=== PATIENT | male | born 1995 | race Caucasian/White ===

== ENCOUNTER 2018-05-22 09:22 | Inpatient (IN) ==
[2018-05-22] MEDS ORDERED: SODIUM CHLORIDE 0.9% 1000ML 1,000 ML IV ONE ×2 (09:27→13:12)
--- NOTE | 2018-05-22 09:29 | Emergency Department Note ---
Entered by Dolly Key acting as a scribe for Richi Becerra MD ED Provider Note Name: Jhon Lopez Age: 22 M Arrives Via: EMS Informant: EMS (Patient is a poor informant due to intoxication/psychosis) CC: Alcohol Intoxication HPI: 22 year old male arrives for evaluation of an episode of alcohol intoxication that began last night. Per EMS, the patient was found this morning in the back of a store. EMS states that the patient only responds to the opposite of what is said. The patient states that he drank "everything" last night, and states that he snorted Adderall last night. Per EMS, the patient is intermittently agitated. ROS: Unable to obtain as patient acutely psychotic Past Medical History: No significant past medical history Past Surgical History: No significant past surgical history Family History: No significant past family history Social History: Student Home Medications: Unknown Allergies Unknown Physical: Vitals: BP: 149/98; Pulse: 108; Resp: 18; Temp: 99.0 F; O2 Sat: 98 via room air Exam: GENERAL: Patient is agitated. Rapid gittery movements. ?etoh EYES: No scleral icterus, unremarkable pupils. Rapid gittery eye movements. ENT: Mucous membranes dry, no nasal congestion. NECK: No masses appreciated, no meningismus, trachea is midline. RESPIRATORY: No dyspnea. Clear to auscultation and equal bilaterally. No wheeze, no rhonchi. CARDIOVASCULAR: Tachycardic rate and rhythm. No murmurs, rubs, gallops appreciated. GASTROINTESTINAL: Abdomen soft, non-tender, no peritonitis. Bowel sounds positive. No masses appreciated. BACK: No midline tenderness, no CVA tenderness EXTREMITIES: Normal motion all extremities, no cyanosis, no edema. NEUROLOGIC: No acute motor or sensory deficits, no focal weakness, cranial ner ves grossly intact. Clear pressured speech. Non-cooperative. Moving all extremities purposefully. SKIN: No rash, no jaundice, no diaphoresis. ED Course: Prior Medical Record, Triage/Nursing Notes, Medications, Allergies reviewed by Me Vital Signs: reviewed and remarkable for Tachy, HTN Labs: Reviewed and remarkable for mild elevation Bilirubin. Normal psych labs. Unable to get salicylate. Marijuana in UA. Interventions: Saline Lock, NSS bolus 2 L IV, Ativan 2mg IM, Haldol 10mg IM Imaging: CT Head: negative per rads EKG: Per My Interpretation: indication: AMS: NSR 72 bpm without ectopy nor ischemia. QTC 470. No previous for comparison. Consults: Mental Health Case Management: Pending Reassessments/Times: 0931: The patient is becoming more agitated and screaming at staff. 0942: The patient is becoming increasingly agitated. 2mg IM Ativan ordered verbally. 0944: 10 IM Haldol ordered. 0946: The patient is becoming increasingly combative. He is attempting to escape and attacking staff. 0953: The patient is calming down slightly. He periodically tries to bite off the restraints. He is not aggressive at the moment. 1005: There is still some difficulty getting an IV and labs due to the patient's agitation. The patient is no longer attacking staff. 1102: The patient's heart rate is down into the 80s. He is able to move his head around without difficulty and wakes up if talked to. 1153: The patient follows commands and is in no distress. 1306: The patient is sleeping but awakens to answer questions. The patient states that I can call his father. 1318: I talked to the patient's father who states that the patient has been more agitated over the last few days. He states that the patient has been smoking a lot of marijuana and lies regularly. The patient's father states that there is no family history of psychiatric or liver problems. Per the patient's father, the patient had an altercation with the police last night in [facility]. I discussed the findings with the patient's father who is agreeable to the plan. We will hold off on LP. The patient's mother is coming in from [place]. 1351: The patient is cooperative but quite somnolent. He falls back to sleep without difficulty. 1551: The patient is periodically talking in double negatives. He admits to continuing opposite talk. The patient states that he does not remember how he got here. He states that he does remember what happened last night. The patient states that he did not take any drugs last night, and states that he did not smoke marijuana last night. The patient will not state if he is talking in double negatives. 1627: I asked mental health to evaluate the patient although he is not completely medically clear at this time. 1708: Mental health evaluated the patient. He is starting to open up to them and is exhibiting evidence of delusions and paranoia. 175: I discussed the case with the patient's mother who states that the patient has not been acting himself. The patient's mother believes that the patient would benefit from inpatient care. 180: The patient's mother evaluated the patient. The patient recognizes her, but will only talk in opposites to her. 1815: The patient is being signed out to Dr. Soriano at change of shift. Blood pressure: Normal. No Referral necessary Disposition: Signed out to Dr Soriano Pending further psych eval Differentials: Etiologies such as alcohol intoxication, toxicologic, infection, hypoglycemia, electrolyte abnormalities, cardiac sources, intracerebral event, neurologic, amongst other pathologies. Medical Decision Making: Acutely psychotic 22 yr old male initially thought to be excited delirium from etoh. I was unable to verbally deescalate nor re-direct the patient. The patient's combative behavior was risking a catastrophe. To protect the staff and the patient from harm it was necessary to chemically and physically restrain the patient. Etoh negative. By this point starting to gather further information that he has not been sleeping several days, has been heavily using marijuana, and was acting irrationally for last day or so (breaking in to stores, stealing from [employer], and proclaiming end of world). Lab returning unremarkable. Did have mild Bili elevation though there are otherwise normal LFTs, no fever, no abdominal TTP nor evidence of bruising/bleeding. Per family no history Gilbert. For safety I even later repeated this with stable labs and Tylenol level was negative on repeat. He gradually awoke from sedation over next few hours. Calm, cooperative though continues to be very adamant about talking in opposite, with periodic changing up his ansers. He is very paranoid about something but is unwilling to say what. After prolonged discussion with Case management he is being much more open to her. He continues opposite talk with both me and mother, as well as most of staff. He in no way appears encephalopathic nor evidence of meningitis. I feel LP would be much more dangerous without much benefit. As ct head negative further neuroimaging not indicated. WBC wnl, no fever, and no meningeal signs on exam, I do not feel that this is infectious in nature. Electrolytes look ok and this is not rhabdo. Etoh negative thus not alcohol related. Very well may be tox but only marijuana on board and even after calm he is still paranoid. I suspect this may end up being first episode of psychotic break with paranoid schizophrenia. His cooperative nature post haldol, though still paranoid leads me to think this is the case. He was monitored very closely throughout entire stay and was well hydrated for what I think was some dehydration. Mother in to see him and agrees that while he knows who she is, he is far to paranoid to even discuss things with her. Fortunately he seems comfortable with out transportation project manager, and is currently willing to sign 201 to get help as he seems to understand he needs it. Signed out to Dr Soriano pending mental health evaluation/placement. Impression: Acute Psychogenic Paranoid Psychosis Acute Dehydration Critical Care Time: I have personally spent greater than 45 minutes of critical care time in the direct management of this patient. Acute psychosis requiring chemical and physical restraints. This was a life/limb threatening event. This includes time spent evaluating patient, direct bedside care, chart review, placing orders, interpretation of diagnostic studies, discussion with consultants, patient, and family members, as well as other required patient management activities. This 45 minutes is in excess of all separately billable procedures. Richi Becerra MD The scribe's documentation has been prepared under my direction and personally reviewed by me in its entirety. I confirm that the note above accurately re flects all work, treatment, procedures, and medical decision making performed by me. Impression & Plan Acute psychogenic paranoid psychosis, Acute dehydration Past Med/Surg History Medical History No significant past medical history Social History Feels Safe at Home: Yes Smoking Status: Smoker, status unknown Results & Data Vital Signs Vital Signs - 24 hr 05/22/18 09:30 05/22/18 09:31 05/22/18 09:35 Temperature 37.2 C Temperature Source Oral Sepsis Recent Fever Within 48 Hours No Sepsis New/Unexplained Change in Mental Status No Sepsis Action Taken by Nursing No Action Required Pulse Rate 108 H 112 H 85 Pulse Rate [Finger] Pulse Rate from SpO2 Sensor 110 H 92 H Pulse Rhythm Regular Pulse Strength Normal Respiratory Rate 18 16 18 Respiratory Effort / Characteristics Non-Labored Spontaneous Respiratory Depth Normal Respiratory Pattern Regular Blood Pressure 149/98 H 149/98 H Blood Pressure [Left Arm] Blood Pressure Mean 115 115 Blood Pressure Mean [Left Arm] Blood Pressure Position Lying Blood Pressure Position [Left Arm] Pulse Oximetry 98 97 95 Oxygen Delivery Method Room Air Room Air Room Air 05/22/18 09:45 05/22/18 10:00 05/22/18 10:11 Temperature Temperature Source Sepsis Recent Fever Within 48 Hours Sepsis New/Unexplained Change in Mental Status Sepsis Action Taken by Nursing Pulse Rate 106 H 105 H 108 H Pulse Rate [Finger] Pulse Rate from SpO2 Sensor 107 H 103 H Pulse Rhythm Pulse Strength Respiratory Rate 25 H 6 L 17 Respiratory Effort / Characteristics Respiratory Depth Respiratory Pattern Blood Pressure 138/79 Blood Pressure [Left Arm] Blood Pressure Mean 98 Blood Pressure Mean [Left Arm] Blood Pressure Position Blood Pressure Position [Left Arm] Pulse Oximetry 95 92 Oxygen Delivery Method Room Air Room Air 05/22/18 10:15 05/22/18 10:30 05/22/18 10:45 Temperature Temperature Source Sepsis Recent Fever Within 48 Hours Sepsis New/Unexplained Change in Mental Status Sepsis Action Taken by Nursing Pulse Rate 98 H 86 90 Pulse Rate [Finger] Pulse Rate from SpO2 Sensor 98 H 88 90 Pulse Rhythm Pulse Strength Respiratory Rate 9 L 16 10 L Respiratory Effort / Characteristics Respiratory Depth Respiratory Pattern Blood Pressure 131/84 132/67 92/57 L Blood Pressure [Left Arm] Blood Pressure Mean 99 88 68 Blood Pressure Mean [Left Arm] Blood Pressure Position Blood Pressure Position [Left Arm] Pulse Oximetry 95 96 95 Oxygen Delivery Method Room Air Room Air Room Air 05/22/18 11:00 05/22/18 11:15 05/22/18 11:16 Temperature Temperature Source Sepsis Recent Fever Within 48 Hours Sepsis New/Unexplained Change in Mental Status Sepsis Action Taken by Nursing Pulse Rate 81 80 89 Pulse Rate [Finger] Pulse Rate from SpO2 Sensor 81 80 85 Pulse Rhythm Pulse Strength Respiratory Rate 18 14 23 Respiratory Effort / Characteristics Respiratory Depth Respiratory Pattern Blood Pressure 106/61 91/63 L Blood Pressure [Left Arm] Blood Pressure Mean 76 72 Blood Pressure Mean [Left Arm] Blood Pressure Position Blood Pressure Position [Left Arm] Pulse Oximetry 93 92 99 Oxygen Delivery Method Room Air Room Air Room Air 05/22/18 11:42 05/22/18 11:43 05/22/18 11:45 Temperature Temperature Source Sepsis Recent Fever Within 48 Hours Sepsis New/Unexplained Change in Mental Status Sepsis Action Taken by Nursing Pulse Rate 69 83 62 Pulse Rate [Finger] Pulse Rate from SpO2 Sensor Pulse Rhythm Pulse Strength Respiratory Rate 13 15 14 Respiratory Effort / Characteristics Respiratory Depth Respiratory Pattern Blood Pressure 119/65 Blood Pressure [Left Arm] Blood Pressure Mean 83 Blood Pressure Mean [Left Arm] Blood Pressure Position Blood Pressure Position [Left Arm] Pulse Oximetry 97 100 95 Oxygen Delivery Method Room Air Room Air Room Air 05/22/18 12:00 05/22/18 12:15 05/22/18 12:30 Temperature Temperature Source Sepsis Recent Fever Within 48 Hours Sepsis New/Unexplained Change in Mental Status Sepsis Action Taken by Nursing Pulse Rate 74 79 64 Pulse Rate [Finger] Pulse Rate from SpO2 Sensor 62 Pulse Rhythm Pulse Strength Respiratory Rate 18 12 15 Respiratory Effort / Characteristics Respiratory Depth Respiratory Pattern Blood Pressure Blood Pressure [Left Arm] Blood Pressure Mean Blood Pressure Mean [Left Arm] Blood Pressure Position Blood Pressure Position [Left Arm] Pulse Oximetry 97 94 98 Oxygen Delivery Method Room Air Room Air Room Air 05/22/18 12:45 05/22/18 13:00 05/22/18 13:07 Temperature Temperature Source Sepsis Recent Fever Within 48 Hours Sepsis New/Unexplained Change in Mental Status Sepsis Action Taken by Nursing Pulse Rate 80 75 71 Pulse Rate [Finger] Pulse Rate from SpO2 Sensor 79 73 70 Pulse Rhythm Pulse Strength Respiratory Rate 14 14 17 Respiratory Effort / Characteristics Respiratory Depth Respiratory Pattern Blood Pressure 81/44 L 81/44 L Blood Pressure [Left Arm] Blood Pressure Mean 56 56 Blood Pressure Mean [Left Arm] Blood Pressure Position Blood Pressure Position [Left Arm] Pulse Oximetry 94 95 94 Oxygen Delivery Method Room Air Room Air Room Air 05/22/18 13:14 05/22/18 13:16 05/22/18 13:30 Temperature Temperature Source Sepsis Recent Fever Within 48 Hours Sepsis New/Unexplained Change in Mental Status Sepsis Action Taken by Nursing Pulse Rate 69 70 77 Pulse Rate [Finger] Pulse Rate from SpO2 Sensor 72 69 76 Pulse Rhythm Pulse Strength Respiratory Rate 19 16 15 Respiratory Effort / Characteristics Respiratory Depth Respiratory Pattern Blood Pressure 92/43 L 108/55 L Blood Pressure [Left Arm] Blood Pressure Mean 59 72 Blood Pressure Mean [Left Arm] Blood Pressure Position Blood Pressure Position [Left Arm] Pulse Oximetry 94 94 95 Oxygen Delivery Method Room Air Room Air Room Air 05/22/18 13:45 05/22/18 14:00 05/22/18 14:15 Temperature Temperature Source Sepsis Recent Fever Within 48 Hours Sepsis New/Unexplained Change in Mental Status Sepsis Action Taken by Nursing Pulse Rate 73 74 67 Pulse Rate [Finger] Pulse Rate from SpO2 Sensor 73 73 70 Pulse Rhythm Pulse Strength Respiratory Rate 13 16 15 Respiratory Effort / Characteristics Respiratory Depth Respiratory Pattern Blood Pressure 112/57 L Blood Pressure [Left Arm] Blood Pressure Mean 75 Blood Pressure Mean [Left Arm] Blood Pressure Position Blood Pressure Position [Left Arm] Pulse Oximetry 95 95 95 Oxygen Delivery Method Room Air Room Air Room Air 05/22/18 14:30 05/22/18 14:45 05/22/18 15:00 Temperature Temperature Source Sepsis Recent Fever Within 48 Hours Sepsis New/Unexplained Change in Mental Status Sepsis Action Taken by Nursing Pulse Rate 72 76 Pulse Rate [Finger] Pulse Rate from SpO2 Sensor 72 71 76 Pulse Rhythm Pulse Strength Respiratory Rate 14 12 3 L Respiratory Effort / Characteristics Respiratory Depth Respiratory Pattern Blood Pressure 101/54 L 102/56 L Blood Pressure [Left Arm] Blood Pressure Mean 69 71 Blood Pressure Mean [Left Arm] Blood Pressure Position Blood Pressure Position [Left Arm] Pulse Oximetry 95 96 95 Oxygen Delivery Method Room Air 05/22/18 15:15 05/22/18 15:30 05/22/18 15:45 Temperature Temperature Source Sepsis Recent Fever Within 48 Hours Sepsis New/Unexplained Change in Mental Status Sepsis Action Taken by Nursing Pulse Rate 78 75 85 Pulse Rate [Finger] Pulse Rate from SpO2 Sensor 76 75 90 Pulse Rhythm Pulse Strength Respiratory Rate 9 L 3 L 14 Respiratory Effort / Characteristics Respiratory Depth Respiratory Pattern Blood Pressure 106/54 L Blood Pressure [Left Arm] Blood Pressure Mean 71 Blood Pressure Mean [Left Arm] Blood Pressure Position Blood Pressure Position [Left Arm] Pulse Oximetry 95 95 99 Oxygen Delivery Method 05/22/18 16:00 05/22/18 16:01 05/22/18 16:15 Temperature Temperature Source Sepsis Recent Fever Within 48 Hours Sepsis New/Unexplained Change in Mental Status Sepsis Action Taken by Nursing Pulse Rate 60 95 H Pulse Rate [Finger] Pulse Rate from SpO2 Sensor 62 Pulse Rhythm Pulse Strength Respiratory Rate 10 L 22 11 L Respiratory Effort / Characteristics Respiratory Depth Respiratory Pattern Blood Pressure 133/107 H Blood Pressure [Left Arm] Blood Pressure Mean 115 Blood Pressure Mean [Left Arm] Blood Pressure Position Blood Pressure Position [Left Arm] Pulse Oximetry 97 Oxygen Delivery Method 05/22/18 16:30 05/22/18 16:45 05/22/18 17:00 Temperature Temperature Source Sepsis Recent Fever Within 48 Hours Sepsis New/Unexplained Change in Mental Status Sepsis Action Taken by Nursing Pulse Rate Pulse Rate [Finger] Pulse Rate from SpO2 Sensor Pulse Rhythm Pulse Strength Respiratory Rate 16 6 L 12 Respiratory Effort / Characteristics Respiratory Depth Respiratory Pattern Blood Pressure Blood Pressure [Left Arm] Blood Pressure Mean Blood Pressure Mean [Left Arm] Blood Pressure Position Blood Pressure Position [Left Arm] Pulse Oximetry Oxygen Delivery Method 05/22/18 17:15 05/22/18 17:30 05/22/18 17:53 Temperature Temperature Source Sepsis Recent Fever Within 48 Hours Sepsis New/Unexplained Change in Mental Status Sepsis Action Taken by Nursing Pulse Rate 72 72 Pulse Rate [Finger] Pulse Rate from SpO2 Sensor 74 Pulse Rhythm Pulse Strength Respiratory Rate 22 16 Respiratory Effort / Characteristics Respiratory Depth Respiratory Pattern Blood Pressure 103/42 L Blood Pressure [Left Arm] Blood Pressure Mean 62 Blood Pressure Mean [Left Arm] Blood Pressure Position Blood Pressure Position [Left Arm] Pulse Oximetry 96 Oxygen Delivery Method 05/22/18 17:55 05/22/18 18:00 05/22/18 18:15 Temperature Temperature Source Sepsis Recent Fever Within 48 Hours Sepsis New/Unexplained Change in Mental Status Sepsis Action Taken by Nursing Pulse Rate Pulse Rate [Finger] Pulse Rate from SpO2 Sensor 78 71 85 Pulse Rhythm Pulse Strength Respiratory Rate Respiratory Effort / Characteristics Respiratory Depth Respiratory Pattern Blood Pressure 94/48 L Blood Pressure [Left Arm] Blood Pressure Mean 63 Blood Pressure Mean [Left Arm] Blood Pressure Position Blood Pressure Position [Left Arm] Pulse Oximetry 96 96 97 Oxygen Delivery Method 05/22/18 18:30 05/22/18 18:31 05/22/18 20:36 Temperature Temperature Source Sepsis Recent Fever Within 48 Hours Sepsis New/Unexplained Change in Mental Status Sepsis Action Taken by Nursing Pulse Rate 100 H Pulse Rate [Finger] Pulse Rate from SpO2 Sensor 84 82 Pulse Rhythm Pulse Strength Respiratory Rate 18 Respiratory Effort / Characteristics Respiratory Depth Respiratory Pattern Blood Pressure 129/71 124/76 Blood Pressure [Left Arm] Blood Pressure Mean 90 92 Blood Pressure Mean [Left Arm] Blood Pressure Position Blood Pressure Position [Left Arm] Pulse Oximetry 97 98 98 Oxygen Delivery Method 05/22/18 22:30 05/22/18 23:20 Temperature Temperature Source Sepsis Recent Fever Within 48 Hours Sepsis New/Unexplained Change in Mental Status Sepsis Action Taken by Nursing Pulse Rate 85 Pulse Rate [Finger] 82 Pulse Rate from SpO2 Sensor Pulse Rhythm Pulse Strength Respiratory Rate 18 16 Respiratory Effort / Characteristics Non-Labored Spontaneous Respiratory Depth Normal Respiratory Pattern Blood Pressure 115/76 Blood Pressure [Left Arm] 108/59 L Blood Pressure Mean 89 Blood Pressure Mean [Left Arm] 75 Blood Pressure Position Blood Pressure Position [Left Arm] Lying Pulse Oximetry 98 95 Oxygen Delivery Method Room Air Home Medications Current Medication List: was personally reviewed by me Laboratory Data Attestation: I reviewed the patient's lab results. Result diagrams: 05/22/18 10:12 05/22/18 16:53 Lab Results 05/22/18 05/22/18 05/22/18 Range/Units 10:06 10:12 10:12 WBC 9.86 (4.8-10.8) K/uL RBC 5.24 (4.7-6.1) M/uL Hgb 15.5 (14.0-18.0) g/dL Hct 45.6 (42-52) % MCV 87.0 (80-100) fL MCH 29.6 (25-34) pg MCHC 34.0 (32-36) g/dL RDW Std Deviation 43.4 (36.4-46.3) fL RDW Coeff of Casey 13.5 (11.5-14.5) % Plt Count 193 (130-400) K/uL MPV 11.8 H (7.4-10.4) fL Immature Gran % (Auto) 0.1 % Neut % (Auto) 74.9 % Lymph % (Auto) 17.0 % [place] % (Auto) 7.5 % Eos % (Auto) 0.3 % Baso % (Auto) 0.2 % Immature Gran # (Auto) 0.01 (0.00-0.02) K/uL Neut # (Auto) 7.38 H (1.4-6.5) K/uL Lymph # (Auto) 1.68 (1.2-3.4) K/uL [place] # (Auto) 0.74 H (0.11-0.59) K/uL Eos # (Auto) 0.03 (0-0.5) K/uL Baso # (Auto) 0.02 (0-0.2) K/uL Sodium 139 (136-145) mmol/L Potassium 3.6 (3.5-5.1) mmol/L Chloride 104 (98-107) mmol/L Carbon Dioxide 24 (21-32) mmol/L Anion Gap 11.0 (3-11) BUN 16 (7-18) mg/dl Creatinine 1.02 (0.6-1.4) mg/dl Est Cr Clr Drug Dosing 101.0 ml/min Est GFR ( Amer) 122.1 Est GFR (Non-Af Amer) 105.3 BUN/Creatinine Ratio 15.8 (10-20) Glucose 130 H (70-99) mg/dl Calcium 9.9 (8.5-10.1) mg/dl Total Bilirubin 2.1 H (0.2-1) mg/dl Direct Bilirubin 0.4 H (0-0.2) mg/dl AST 17 (15-37) U/L ALT 21 (12-78) U/L Alkaline Phosphatase 77 (45-117) U/L Total Creatine Kinase 243 (39-308) U/L Total Protein 8.2 (6.4-8.2) gm/dl Albumin 4.8 (3.4-5.0) gm/dl Globulin (2.5-4.0) gm/dl Albumin/Globulin Ratio (0.9-2) TSH (0.300-4.500) uIu/ml Urine Color Urine Appearance (Clear) Urine pH (4.5-7.5) Ur Specific [place] (1.000-1.030) Urine Protein (Negative) Urine Glucose (UA) (Negative) Urine Ketones (Negative) Urine Blood (Negative) Urine Nitrite (Negative) Urine Bilirubin (Negative) Urine Urobilinogen (Negative) Ur Leukocyte Esterase (Negative) Urine WBC (Auto) (0-5) /hpf Urine RBC (Auto) (0-4) /hpf U Hyaline Cast (Auto) U Epithel Cells (Auto) (0-5) /lpf Urine Bacteria (Auto) (Negative) Ur Renal Epithelial Cell Urine Mucus (None Prsent) Salicylates (2.8-20) mg/dl Urine Opiates Screen (Neg) Ur Methadone, Qual (Neg) Acetaminophen (10-30) ug/ml Urine Barbiturates (Neg) Ur Phencyclidine (PCP) (Neg) U Amphetamin/Meth Scrn (Neg) MDMA (Ecstasy) Screen (Neg) U Benzodiazepines Scrn (Neg) Ur Cocaine Metabolite (Neg) U Marijuana (THC) Screen (Neg) Ethyl Alcohol mg/dL < 3.0 (0-3) mg/dl 05/22/18 05/22/18 05/22/18 Range/Units 10:13 12:30 12:30 WBC (4.8-10.8) K/uL RBC (4.7-6.1) M/uL Hgb (14.0-18.0) g/dL Hct (42-52) % MCV (80-100) fL MCH (25-34) pg MCHC (32-36) g/dL RDW Std Deviation (36.4-46.3) fL RDW Coeff of Casey (11.5-14.5) % Plt Count (130-400) K/uL MPV (7.4-10.4) fL Immature Gran % (Auto) % Neut % (Auto) % Lymph % (Auto) % [place] % (Auto) % Eos % (Auto) % Baso % (Auto) % Immature Gran # (Auto) (0.00-0.02) K/uL Neut # (Auto) (1.4-6.5) K/uL Lymph # (Auto) (1.2-3.4) K/uL [place] # (Auto) (0.11-0.59) K/uL Eos # (Auto) (0-0.5) K/uL Baso # (Auto) (0-0.2) K/uL Sodium (136-145) mmol/L Potassium (3.5-5.1) mmol/L Chloride (98-107) mmol/L Carbon Dioxide (21-32) mmol/L Anion Gap (3-11) BUN (7-18) mg/dl Creatinine (0.6-1.4) mg/dl Est Cr Clr Drug Dosing ml/min Est GFR ( Amer) Est GFR (Non-Af Amer) BUN/Creatinine Ratio (10-20) Glucose (70-99) mg/dl Calcium (8.5-10.1) mg/dl Total Bilirubin (0.2-1) mg/dl Direct Bilirubin (0-0.2) mg/dl AST (15-37) U/L ALT (12-78) U/L Alkaline Phosphatase (45-117) U/L Total Creatine Kinase (39-308) U/L Total Protein (6.4-8.2) gm/dl Albumin (3.4-5.0) gm/dl Globulin (2.5-4.0) gm/dl Albumin/Globulin Ratio (0.9-2) TSH (0.300-4.500) uIu/ml Urine Color Dark Yellow Urine Appearance Cloudy H (Clear) Urine pH 5.5 (4.5-7.5) Ur Specific [place] 1.039 H (1.000-1.030) Urine Protein 1+ H (Negative) Urine Glucose (UA) Negative (Negative) Urine Ketones 3+ H (Negative) Urine Blood 2+ H (Negative) Urine Nitrite Negative (Negative) Urine Bilirubin Negative (Negative) Urine Urobilinogen Negative (Negative) Ur Leukocyte Esterase Negative (Negative) Urine WBC (Auto) 5-10 H (0-5) /hpf Urine RBC (Auto) 10-30 H (0-4) /hpf U Hyaline Cast (Auto) Not Reportable U Epithel Cells (Auto) >30 H (0-5) /lpf Urine Bacteria (Auto) Negative (Negative) Ur Renal Epithelial Cell Not Reportable Urine Mucus Present H (None Prsent) Salicylates (2.8-20) mg/dl Urine Opiates Screen Neg (Neg) Ur Methadone, Qual Neg (Neg) Acetaminophen (10-30) ug/ml Urine Barbiturates Neg (Neg) Ur Phencyclidine (PCP) Neg (Neg) U Amphetamin/Meth Scrn Neg (Neg) MDMA (Ecstasy) Screen Neg (Neg) U Benzodiazepines Scrn Neg (Neg) Ur Cocaine Metabolite Neg (Neg) U Marijuana (THC) Screen Pos H (Neg) Ethyl Alcohol mg/dL (0-3) mg/dl 05/22/18 05/22/18 Range/Units 16:53 16:53 WBC (4.8-10.8) K/uL RBC (4.7-6.1) M/uL Hgb (14.0-18.0) g/dL Hct (42-52) % MCV (80-100) fL MCH (25-34) pg MCHC (32-36) g/dL RDW Std Deviation (36.4-46.3) fL RDW Coeff of Casey (11.5-14.5) % Plt Count (130-400) K/uL MPV (7.4-10.4) fL Immature Gran % (Auto) % Neut % (Auto) % Lymph % (Auto) % [place] % (Auto) % Eos % (Auto) % Baso % (Auto) % Immature Gran # (Auto) (0.00-0.02) K/uL Neut # (Auto) (1.4-6.5) K/uL Lymph # (Auto) (1.2-3.4) K/uL [place] # (Auto) (0.11-0.59) K/uL Eos # (Auto) (0-0.5) K/uL Baso # (Auto) (0-0.2) K/uL Sodium 140 (136-145) mmol/L Potassium 4.1 (3.5-5.1) mmol/L Chloride 110 H (98-107) mmol/L Carbon Dioxide 26 (21-32) mmol/L Anion Gap 4.0 (3-11) BUN 14 (7-18) mg/dl Creatinine 0.82 (0.6-1.4) mg/dl Est Cr Clr Drug Dosing 125.6 ml/min Est GFR ( Amer) 147.5 Est GFR (Non-Af Amer) 127.3 BUN/Creatinine Ratio 17.8 (10-20) Glucose 92 (70-99) mg/dl Calcium 8.4 L D (8.5-10.1) mg/dl Total Bilirubin 2.0 H (0.2-1) mg/dl Direct Bilirubin (0-0.2) mg/dl AST 35 (15-37) U/L ALT 18 (12-78) U/L Alkaline Phosphatase 60 (45-117) U/L Total Creatine Kinase (39-308) U/L Total Protein 6.5 D (6.4-8.2) gm/dl Albumin 3.7 (3.4-5.0) gm/dl Globulin 2.8 (2.5-4.0) gm/dl Albumin/Globulin Ratio 1.3 (0.9-2) TSH 1.490 (0.300-4.500) uIu/ml Urine Color Urine Appearance (Clear) Urine pH (4.5-7.5) Ur Specific [place] (1.000-1.030) Urine Protein (Negative) Urine Glucose (UA) (Negative) Urine Ketones (Negative) Urine Blood (Negative) Urine Nitrite (Negative) Urine Bilirubin (Negative) Urine Urobilinogen (Negative) Ur Leukocyte Esterase (Negative) Urine WBC (Auto) (0-5) /hpf Urine RBC (Auto) (0-4) /hpf U Hyaline Cast (Auto) U Epithel Cells (Auto) (0-5) /lpf Urine Bacteria (Auto) (Negative) Ur Renal Epithelial Cell Urine Mucus (None Prsent) Salicylates (2.8-20) mg/dl Urine Opiates Screen (Neg) Ur Methadone, Qual (Neg) Acetaminophen < 2 L (10-30) ug/ml Urine Barbiturates (Neg) Ur Phencyclidine (PCP) (Neg) U Amphetamin/Meth Scrn (Neg) MDMA (Ecstasy) Screen (Neg) U Benzodiazepines Scrn (Neg) Ur Cocaine Metabolite (Neg) U Marijuana (THC) Screen (Neg) Ethyl Alcohol mg/dL (0-3) mg/dl Administered Medications Discontinued Medications Haloperidol Lactate (Haldol) Confirm Administered Dose 10 mg .ROUTE .STK-MED ONE Stop: 05/22/18 09:45 Last Admin: 05/22/18 09:52 Dose: Not Given Documented by: [id number] Haloperidol Lactate (Haldol) 10 mg IM NOW STA Stop: 05/22/18 09:45 Last Admin: 05/22/18 09:47 Dose: 10 mg Documented by: [id number] Sodium Chloride (Nss 1000ml) 1,000 mls @ 999 mls/hr IV .Q1H1M ONE Stop: 05/22/18 10:27 Last Infusion: 05/22/18 11:53 Dose: 0 mls/hr Documented by: [id number] Admin: 05/22/18 10:18 Dose: 999 mls/hr Documented by: [id number] Lorazepam (Ativan) 2 mg in 4 mls @ 4 mls/min IV NOW STA Stop: 05/22/18 09:32 Last Admin: 05/22/18 10:33 Dose: Not Given Documented by: [id number] Lorazepam (Ativan) 2 mg in 4 mls @ 4 mls/min IV NOW STA Stop: 05/22/18 10:14 Last Admin: 05/22/18 10:18 Dose: Not Given Documented by: [id number] Sodium Chloride (Nss 1000ml) 1,000 mls @ 999 mls/hr IV .Q1H1M ONE Stop: 05/22/18 14:12 Last Infusion: 05/22/18 14:25 Dose: 0 mls/hr Documented by: [id number] Admin: 05/22/18 13:24 Dose: 999 mls/hr Documented by: [id number] Lorazepam (Ativan) 2 mg IM NOW STA Stop: 05/22/18 10:21 Last Admin: 05/22/18 09:45 Dose: 2 mg Documented by: [id number] Imaging Data Radiologist's Impression: Radiology results as stated below per my review and the radiologist's interpretation: CT head/brain wo con CT DOSE: 614.27 mGy.cm HISTORY: Acute Mental Status Change TECHNIQUE: Multiaxial CT images of the head were performed without the use of intravenous contrast. A dose lowering technique was utilized adhering to the principles of ALARA. Comparison: None. Findings: The paranasal sinuses and mastoid air cells are clear. The calvarium and skull base are intact. The ventricles and sulci are within normal limits. There is no mass, hematoma, midline shift, or acute infarct. Impression: No acute intracranial abnormality. The above report was generated using voice recognition software. It may contain grammatical, syntax or spelling errors. Electronically signed by: Jero Sanchez M.D. 05/22/2018 11:41 AM Discharge Plan Visit Data Chief Complaint: Alcohol Intoxication Stated Complaint: alcohol ED Provider: Richi Becerra Discharge Problem: Acute psychogenic paranoid psychosis, Acute dehydration Forms Stand Alone Forms: My [facility] Prescriptions Prescriptions: No Action No Known Home Medications RF: 0 The scribe's documentation has been prepared under my direction and personally reviewed by me in its entirety. I confirm that the note above accurately reflects all work, treatment, procedures, and medical decision making performed by me.
[2018-05-22] MEDS ORDERED: LORazepam 2 MG/4 ML VIAL IV STA ×2 (09:31→10:13)
[2018-05-22] MEDS ORDERED: HALOPERIDOL LACTATE 5 MG/ML 1 ML VIAL ONE (09:44)
[2018-05-22] MEDS ORDERED: HALOPERIDOL LACTATE 5 MG/ML 1 ML VIAL IM STA (09:44)
[2018-05-22] MEDS ORDERED: LORazepam 2 MG/ML VIAL (IM USE) IM STA (10:20)
[2018-05-22 10:23] LABS: Basophils # (auto) 0.02 K/uL (0-0.2); Basophils % (auto) 0.2 %; Eosinophils # (auto) 0.03 K/uL (0-0.5); Eosinophils % (auto) 0.3 %; Hematocrit (blood only) 45.6 % (42-52); Hemoglobin 15.5 g/dL (14.0-18.0); Immature Granulocytes # (auto) 0.01 K/uL (0.00-0.02); Immature Granulocytes % (auto) 0.1 %; Lymphocytes # (auto) 1.68 K/uL (1.2-3.4); Mean Platelet Volume 11.8 fL (7.4-10.4); Monocytes # (auto) 0.74 K/uL (0.11-0.59); Monocytes % (auto) 7.5 %; Neutrophils # (auto) 7.38 K/uL (1.4-6.5); Neutrophils % (auto) 74.9 %; Platelet Count 193 K/uL (130-400); RDW Coefficient of Variation 13.5 % (11.5-14.5); RDW Standard Deviation 43.4 fL (36.4-46.3); Red Blood Count 5.24 M/uL (4.7-6.1); White Blood Count 9.86 K/uL (4.8-10.8)
[2018-05-22 10:51] LABS: Albumin Level 4.8 gm/dl (3.4-5.0); BUN Creatinine Ratio 15.8 (10-20); Bilirubin Direct 0.4 mg/dl (0-0.2); Calcium 9.9 mg/dl (8.5-10.1); Est GFR (African American) 122.1; Est GFR (Non-African American) 105.3; Potassium 3.6 mmol/L (3.5-5.1)
[2018-05-22 10:53] LABS: Bilirubin,Total 2.1 mg/dl (0.2-1); Total Protein 8.2 gm/dl (6.4-8.2)
--- NOTE | 2018-05-22 11:42 | CT Scan Report ---
CT head/brain wo con CT DOSE: 614.27 mGy.cm HISTORY: Acute Mental Status Change TECHNIQUE: Multiaxial CT images of the head were performed without the use of intravenous contrast. A dose lowering technique was utilized adhering to the principles of ALARA. Comparison: None. Findings: The paranasal sinuses and mastoid air cells are clear. The calvarium and skull base are int act. The ventricles and sulci are within normal limits. There is no mass, hematoma, midline shift, or acute infarct. Impression: No acute intracranial abnormality. The above report was generated using voice recognition software. It may contain grammatical, syntax or spelling errors. Electronically signed by: Jero Sanchez M.D. 05/22/2018 11:41 AM
[2018-05-22 12:41] LABS: Appearance Urine Cloudy (Clear); Bacteria Urine Automated Negative (Negative); Blood Urine 2+ (Negative); Color Urine Dark Yellow; Epithelial Cell Urine Auto >30 /lpf (0-5); Glucose Urine UA Negative (Negative); Leukocyte Esterase Urine Negative (Negative); Nitrite Urine Negative (Negative); Protein Urine 1+ (Negative); Specific Gravity Urine 1.039 (1.000-1.030); Urobilinogen Urine Negative (Negative); pH Urine 5.5 (4.5-7.5)
[2018-05-22 12:53] LABS: Bilirubin Urine Negative (Negative); Ictotest Urine Negative (Negative)
[2018-05-22 12:56] LABS: Ketones Urine 3+ (Negative); Mucus Urine Present (None Prsent)
[2018-05-22 13:00] LABS: Amphetamines+Metham, Urine Neg (Neg); Barbiturates, Urine Neg (Neg); Benzodiazepine, Urine Neg (Neg); Cocaine, Urine Neg (Neg); MDMA (Ecstacy), Urine Neg (Neg); Methadone, Urine Neg (Neg); Opiate, Urine Neg (Neg); Phencyclidine, Urine Neg (Neg)
[2018-05-22 17:23] LABS: Albumin Level 3.7 gm/dl (3.4-5.0); BUN Creatinine Ratio 17.8 (10-20); Calcium 8.4 mg/dl (8.5-10.1); Creatinine Clr Calc Pharmacy 125.6 ml/min; Est GFR (African American) 147.5; Est GFR (Non-African American) 127.3; Potassium 4.1 mmol/L (3.5-5.1)
[2018-05-22 17:32] LABS: Albumin Globulin Ratio 1.3 (0.9-2); Globulin 2.8 gm/dl (2.5-4.0); Total Protein 6.5 gm/dl (6.4-8.2)
--- NOTE | 2018-05-23 01:53 | Emergency Department Note ---
ED Visit Note The patient was taken in signout from Dr. Dodd at the change of shift. Please see that note for details. The patient was pending placement to [facility] for new onset psychosis. Medically cleared after extensive work-up. Mother at bedside. 201 signed. Patient's bed was given away. Will have 3[facility] bed in AM. Patient signed out to Dr. Spivey at change of shift. .
--- NOTE | 2018-05-23 02:57 | Emergency Department Note ---
ED Visit Note The case was signed out to me at change of shift awaiting bed placement. The patient is resting at this time. The bed search was suspended as the p atient will most likely be admitted to 3 S. in the morning when there are planned discharges. The patient has rested throughout the night. The case will be signed out to Dr. Becerra at change of shift. He is familiar with the patient. .
[2018-05-23] MEDS ORDERED: SODIUM CHLORIDE 0.65% NA SOLN 45 ML (OCEAN) PRN (12:14)
[2018-05-23] MEDS ORDERED: BISMUTH SUBSALICYLATE PER ML OMNICELL CHARGE PO PRN (12:14)
[2018-05-23] MEDS ORDERED: ALUMINUM/MAGNESIUM SUSP 30 ML UDC PO PRN (12:14)
[2018-05-23] MEDS ORDERED: ACETAMINOPHEN 325 MG TAB PO PRN (12:14)
[2018-05-23] MEDS ORDERED: MAGNESIUM HYDROXIDE SUSP 30 ML UDC PO PRN (12:14)
[2018-05-23] MEDS ORDERED: LORazepam 2 MG/ML VIAL (IM USE) IM STA (12:37)
[2018-05-23] MEDS ORDERED: HALOPERIDOL LACTATE 5 MG/ML 1 ML VIAL IM STA (12:37)
--- NOTE | 2018-05-23 14:18 | Emergency Department Note ---
ED Visit Note ED Physician Sign Out Note: 22 yr old male known to me from yesterday when he arrived for acute psychosis. Already medically cleared by me earlier. He is in no distress and is comfortable in am, cooperative and actually seems much better. After afternoon went on he began increasing agitation. Did attempt to escape and began further agitated, thus requiring further haldol/ativan sedation IM which worked well. Otherwise looking well. No fevers nor abnormal vitals. Rediscussed case with mother who is aware plan to admit [facility]. [facility] did accept and I signed at 302 warrant given he has gotten to point where he is not capable of making decision to sign 201 now. Mental Health Case Management as well as [facility] on board with plan. Richi Becerra MD
[2018-05-23] MEDS ORDERED: HALOPERIDOL 10 MG TABLET PO PRN (15:02)
[2018-05-23] MEDS ORDERED: LORazepam 1 MG TAB PO PRN (15:02)
[2018-05-23] MEDS ORDERED: LORazepam 2 MG/ML VIAL (IM USE) IM PRN (15:07)
[2018-05-23] MEDS ORDERED: HALOPERIDOL LACTATE 5 MG/ML 1 ML VIAL IM PRN (15:07)
[2018-05-24] MEDS ORDERED: BENZTROPINE MESYLATE 1 MG/ML 2 ML AMP IM PRN (09:27)
--- NOTE | 2018-05-24 09:27 | History & Physical ---
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 He became agitated twice while in the emergency department requiring restraints and IM medications however has been polite and cooperative since being admitted to the unit yesterday afternoon. Today he is denying any overt symptoms of psychosis including hallucinations and delusions and so I will not order any scheduled meds but will continue with as needed Haldol and Ativan. I am concerned he may be developing a dystonia of his tongue and so will order Cogentin 2 mg IM as needed for dystonia. His mother is here in town and will get supplemental from her. I am suspicious that the information provided by the patient this morning is not necessarily accurate and so we will continue to gather information toward the need for either scheduled medications or ongoing inpatient mental health treatment. He has been advised to discontinue use of cannabis or any other abusable substance to which he agrees. At this time, he requires inpatient mental health treatment due to the severity of his condition and the risk of harm to self and others based on inability to manipulate information in a rational and reality based way. (1) Unspecified psychosis: 05/24 Differential includes drug induced psychosis, primary thought disorder - Continue prn haldol and ativan as no overt evidence of psychosis today - Cogentin prn dystonia - Reality orientation - Q 15 min checks for safety - Obtain supplemental information from mother - Aftercare planning - Safety planning - Monitor PO intake as patient with 3+ ketones in urine (2) Cannabis abuse: 05/24 - Recommend abstaining from cannabis and all other abusable substances. 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 He is admitted involuntarily. Information is gathered from the patient and considered to be reliable. Chief Complaint "I've been smoking too much weed recently. ". 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 He is a very difficult historian with distracted thoughts, possible blocking, making it difficult to get good information. He indicates that he is smoking a lot of marijuana that includes possibly some synthetic marijuana and has also been spending too much time on his phone. On the Internet, he had apparently read something about the world coming to and and and became convinced that this was real. He then went to [facility] and while there stole a BB gun and a knife and was caught, charges are pending. He was then brought to our emergency department by the police because he was behaving oddly. While in the emergency department he became agitated requiring restraints once and an IM of Haldol and Ativan. He slept for a while, calm down and was behaviorally appropriate until he was approached to sign involuntarily for mental health treatment at which point he became overtly psychotic and agitated again. He received Haldol 5 mg and Ativan 2 mg and was then admitted to our unit on a 302 involuntary commitment. I meet with the patient as well as Dr. Nickerson. He is alert and cooperative however has trouble expressing his thoughts, frequently getting lost. He indicates that he believes that the marijuana has "suppressed my ability to be creative", "brainwashed me". He is unable to be any more specific about what he means. He denies that he is having any further thoughts about the world coming to an end and has been behaving appropriately. He describes that his mood in recent weeks has been "pretty good". He endorses sleep of about 8 hours per night. He denies anxiety. He denies hallucinations or paranoia today. He denies self-injurious behaviors, eating disorder behaviors, or problems with anger. He responds that his thoughts are moving "fast" but denies elevated energy or increase in goal-directed behaviors that would be congruent with bipolar disorder. He denies ever having had a similar episode initially but at the end of the interview says that he tried to wean off of marijuana last summer and had a similar episode but could not give any specifics or examples. He says that he has been smoking marijuana since he was 18. Past Psychiatric History Previous Psych History: Counseling with Argentina Smith at home in [place] Current Psychiatric Diagnosis: Psychosis NOS Previous Psych Admissions: Denies Do You Have Access To A Gun?: No History of Previous Suicide Attempt: No Describe Attempts in the Past: Denies Past Medication Trials: None Allergies Allergy/AdvReac Type Severity Reaction Status Date / Time No Known Allergies Allergy Unverified 05/22/18 20:55 Home Medications Home Medications Medication Instructions Recorded Confirmed Type No Known Home Medications 05/22/18 05/22/18 History Family History Family History of: None Alcohol History Hx of Alcohol Use Over the Past 12 Months: Yes (2x monthly, drinking to get buzzed) "Rare" Smoking Use Have You Smoked or Used Tobacco Products in the Last 30 Days: No tobacco type: cigarettes Smoking Status: Never smoker Substance History Hx of Prescription Med Misuse Over the Past 12 Months: No Hx of Over the Counter Med Misuse Over the Past 12 Months: No Hx of Inhalent Misuse Over the Past 12 Months: No Hx of Organic Substance Use Over the Past 12 Months: Yes (Marijuana, last use "a few days ago") Hx of Illegal Substances/Street Drug Use Over Past 12 Months: No Problems as a Result of Past Substance Use: None Identified Personal History Living Arrangements: APartment Childhood: Grew up in [place]. Raised by mother and father until they . Mother still lives in [place], is an artist and a cell honest. Father lives in [place] and is a mechanical service representative. He has 2 brothers and 1 sister. 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, GPA approximately 2.9 Employment Status: Student Marital Status: Single Number Of Children: None Beliefs That Will Affect Care: None Current Legal Problems: No Hx Legal Problems: No Psychological Trauma History Comment: Denies Patient History Medical History No significant past medical history Social History Preferred Language: Malagasy Communication Ability: Effective [employer] Required: No Beliefs That Will Affect Care: None Feels Safe at Home: Yes Smoking Status: Never smoker Review of Systems All systems reviewed & are unremarkable except as noted in HPI & below Mild dysarthric speech related to possible dystonia Physical Exam Mental Examination Exam performed by Dr. Becerra in the emergency department has been reviewed and accepted as medical clearance for our unit Psychiatric Orientation: alert and cooperative Apperance: appropriately dressed and appropriately groomed Eye Contact: good eye contact Motor Behavior: steady gait and station and no abnormal motor movements Speech: normal rate/rhythm/volume of speech (At times halting) Affect: + anxious affect "Pretty good Thought Process: + thought blocking; + thought process not clear or coherent Thought Content: reality based without delusions (But with delusions in the emergency department that the world was coming to an end) Suicidal Thoughts: denies suicidal thoughts Homicidal Thoughts: denies homicidal thoughts Hallucinations: no auditory hallucinations and no visual hallucinations Cognition: language grossly intact; + recent memory not intact, + remote memory not intact and + attention not intact Estimated Intelligence: consistent with education level Insight: + impaired insight Judgement: + impaired judgement Vital Signs (Past 24 Hours) Last Vital Signs Temp 36.6 C 05/24/18 06:44 Pulse 85 05/24/18 06:45 Resp 18 05/24/18 06:44 BP 129/79 05/24/18 06:45 Pulse Ox 95 05/22/18 23:20 Results & Data Current Inpatient Medications Current Inpatient Medications: Current Inpatient Medications Acetaminophen (Tylenol) 650 mg PO Q4H PRN PRN Reason: Headache or Minor Fever Stop: 06/22/18 12:13 Al Hydrox/Mg Hydrox/Simethicone (Maalox) 30 ml PO Q4H PRN PRN Reason: GI Upset Stop: 06/22/18 12:13 Bismuth Subsalicylate (Kaopectate) 15 ml PO PRN PRN PRN Reason: Loose Stool Stop: 06/22/18 12:13 Haloperidol (Haldol) 10 mg PO BID PRN PRN Reason: psychosis/agitation Stop: 06/22/18 15:01 Haloperidol Lactate (Haldol) 10 mg IM BID PRN PRN Reason: psychosis/acute agitation Stop: 06/22/18 15:06 Hydroxyzine HCl (Vistaril) 25 mg PO Q4H PRN PRN Reason: Anxiety Stop: 06/22/18 12:13 Hydroxyzine HCl (Vistaril) 50 mg PO HSZ PRN PRN Reason: Insomnia Stop: 06/22/18 12:13 Lorazepam (Ativan) 1 mg PO BID PRN PRN Reason: psychosis/agitation Stop: 06/22/18 15:01 Lorazepam (Ativan) 2 mg IM BID PRN PRN Reason: psychosis/acute agitation Stop: 06/22/18 15:06 Magnesium Hydroxide (Milk Of Magnesia) 30 ml PO DAILY PRN PRN Reason: Heartburn Stop: 06/22/18 12:13 Sodium Chloride ([place] Nasal) 1 - 2 sprays NA PRN PRN PRN Reason: Nasal Dryness/Congestion Stop: 06/22/18 12:13 CPT Code CPT Code Initial Hospital Care: 67636
[2018-05-24] MEDS ORDERED: BENZTROPINE MESYLATE 1 MG/ML 2 ML AMP IM STA (10:54)
[2018-05-24 11:58] LABS: Appearance Urine Clear (Clear); Bilirubin Urine Negative (Negative); Blood Urine Negative (Negative); Color Urine Yellow; Glucose Urine UA Negative (Negative); Ketones Urine Trace (Negative); Leukocyte Esterase Urine Trace (Negative); Nitrite Urine Negative (Negative); Protein Urine Negative (Negative); Urobilinogen Urine Negative (Negative)
[2018-05-24 12:32] LABS: Bacteria Urine Negative (Negative); Epithelial Cell Urine 0-5 /lpf (0-5); RBC Urine 0-4 /hpf (0-4); WBC Urine 0-5 /hpf (0-5)
[2018-05-24] MEDS ORDERED: risperiDONE 0.5 MG TABLET PO PRN (13:22)
--- NOTE | 2018-05-25 08:44 | Psychiatric Progress Note ---
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 He became agitated twice while in the emergency department requiring restraints and IM medications, but has been cooperative since admission. He had a dystonic reaction and received Cogentin with good effect. His mother is here in town and father will be joining later in the week, but he is reluctant to agree to a family meeting. He requires inpatient mental health treatment due to the severity of his condition and the risk of harm to self and others based on inability to manipulate information in a rational and reality based way. (1) Unspecified psychosis: 05/24 - Differential includes drug induced psychosis, primary thought disorder, psychotic mood disorder, or organic cause. Head CT in the ER negative, UDS positive for THC, UA abnormal but appears to be a contaminated sample, and only mild abnormalities in CMP (elevated total and direct bilirubin). TSH and CBC were normal. 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 Patient educated extensively about this diagnosis and the link between cannabis use and psychotic symptoms. - Continue haloperidol and lorazepam as needed for psychosis, and hydroxyzine as needed for sleep or anxiety. - Reviewed recommendation for a family meeting with parents with the patient, and he remains uncertain whether he will agree to this, although he states it could be helpful. It is unclear why he is resistant to this, but he alludes to some disagreements with parents about his substance use in the recent past. - Social work to clarify criminal charges with police, coordinate with the [place] office of student care and advocacy, and refer for outpatient treatment. (2) Cannabis abuse: 05/24 - Recommend abstaining from cannabis and all other abusable substances. Synthetic stimulants and cannabinoids added on to initial ER labs, results pending. 05/25 - Psychoeducation provided re: risks of hallucinogen/cannabis/other substance use, including psychosis, anxiety, negative impact to mood, legal difficulties as a result of erratic behavior, safety concerns. Again reviewed recommenda tions for abstinence, and outpatient substance abuse/psychiatric treatment/follow up. - Patient initially reported drinking alcohol and snorting Adderall in the ER, but UDS negative for those substances, and now denies it. He does report using cocaine once in the past (~2 yrs ago), Adderall (about 8 months ago), and alcohol every 1-2 weeks, up to 5 drinks, as well as regular and sometimes heavy cannabis use. (3) Acute dehydration: 05/24 - Monitor PO intake as patient with 3+ ketones in urine. Repeat UA ordered (as also had 2+ blood with 10-30 red blood cells and mucus on initial UA 05/22/2018), and showed trace ketones and leukocyte esterase, but otherwise normal. 05/25 - Patient denies urinary symptoms, and p.o. intake is good. 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 He was admitted involuntarily on a 302 commitment on 05/23/18. Chief Complaint "Amazing". Review of Systems Notes Restlessness, muscle stiffness, slowing, and other symptoms of EPS/dystonia. Denies dysuria, frequency, urgency, and pain. Sleep Information Total Hours of Sleep: 7.5 Sleep Comments: pt on q-15 minute checks Meal Information Percent Meal Consumed - Lunch: 25 Percent Meal Consumed - Dinner: 0 Nutrition Comment: pt was asleep Subjective Subjective Patient was seen & assessed and interval progress reviewed with treatment team. Staff report he attended and participated in groups, displayed less disorganized and more reality based thinking, and attempted to socialize with peers. He has been calm and in good behavioral control. He read a poem that he wrote to one staff member, which was disorganized and reference the end of the world. He signed releases for his parents, the police, and [employer]. His mother was contacted for collateral and denies knowledge of any previous psychotic symptoms and any family history of psychotic disorders. Social work attempted to schedule a family meeting, as mother requested to meet together with father later in the week (), but the patient said he didn't want to meet with his parents together, then said he didn't want a meeting at all. On my assessment, he reports he is "amazing" and much improved from admission, as his thoughts are clearer and he can "collect my thoughts, organize them, use them in positive ways to help others and myself." He is enjoying talking in group, and is working on his patient workbook. He wrote a letter to his father (as a person who positively impacted him) and apologized for "being ungrateful, figuring out that he was helpful, not the evil monster I thought he was." He says he tends to "plug into dopamine automatic happiness, websurfing, turn on the TV" rather than focusing on college and his detention goals. Up until 2 weeks ago, he was spending 5+ hours/day on social media, but decided it wasn't good for him, so cut back last semester, wanting to focus more on actual relationships. He and his father have argued about his marijuana use, as he says he "was using way too much" last semester, and told his father about it over spring. He is now agreeing to have a meeting with his parents, saying he now understands "they're here to help me." He reviews the events that led up to admission, stating he was high (marijuana), can't recall if it was Fri. or Sat. night, and "I saw something on the internet that made me think the world was going to end." About 3 days prior to that, he started getting "subliminal messages" through the internet and TV shows that he thought were meant for him and giving him special information. He says he went to [facility] around 11:3-pm because "I thought the lights were going to go out and the world was going to end, and thought I needed to be prepared. They caught me with a BB gun and a knife in my bag, sent me to the police station." He denies stealing in the past, and says he did it because "I didn't think anyone would care if I stole them if the lights went out and it was the end of the world." He plans to stop smoking pot "for now," and to limit his drinking by "seeing how much I can drink without getting black out drunk." He denies depressive symptoms now or in the recent past, then says "well I've always been somewhat depressed, but was always able to manage it by going to the gym or talking to my buddies." Mood is "really good," but denies feeling euphoric and racing thoughts. Hydroxyzine was helpful for sleep and "slept like a baby." Energy is good, "maybe a little bit higher than normal. He feels it is helpful to be here to "see people are much worse off than I am." Physical Exam Mental Examination Thin white male appearing his stated age. Casually dressed, with adequate grooming and hygiene. Calm and cooperative. Seated in no acute distress, with good eye contact (staring at times) and no abnormal movements. Speech is spontaneous, normal rate, volume, and tone. Mood is "amazing," but affect is blunted and incongruent. Thoughts are goal-directed for the most part, with episodes of tangentiality. Less focused on delusional thoughts and ideas of reference, more reality based. No SI or HI. Alert and oriented. Level of intelligence estimated to be at least average. Insight and judgment are fair. Vital Signs (Past 24 Hours) Last Vital Signs Temp 36.6 C 05/25/18 06:46 Pulse 77 05/25/18 06:46 Resp 16 05/25/18 06:46 BP 126/84 05/25/18 06:47 Pulse Ox 95 05/22/18 23:20 Results & Data Laboratory Results Laboratory Results - last 24 hr 05/22/18 05/24/18 10:41 11:35 Urine Color Yellow Urine Appearance Clear Urine pH 7.0 Ur Specific [employer] 1.010 Urine Protein Negative Urine Glucose (UA) Negative Urine Ketones Trace H Urine Blood Negative Urine Nitrite Negative Urine Bilirubin Negative Urine Urobilinogen Negative Ur Leukocyte Esterase Trace H Urine RBC 0-4 Urine WBC 0-5 Ur Epithelial Cells 0-5 Urine Bacteria Negative Miscellaneous Test REPORT Miscellaneous Test 2 REPORT Current Inpatient Medications Current Inpatient Medications: Current Inpatient Medications Acetaminophen (Tylenol) 650 mg PO Q4H PRN PRN Reason: Headache or Minor Fever Stop: 06/22/18 12:13 Al Hydrox/Mg Hydrox/Simethicone (Maalox) 30 ml PO Q4H PRN PRN Reason: GI Upset Stop: 06/22/18 12:13 Benztropine Mesylate (Cogentin) 2 mg IM BID PRN PRN Reason: dystonia Stop: 06/23/18 09:26 Last Admin: 05/24/18 10:01 Dose: 2 mg Documented by: Bismuth Subsalicylate (Kaopectate) 15 ml PO PRN PRN PRN Reason: Loose Stool Stop: 06/22/18 12:13 Haloperidol Lactate (Haldol) 10 mg IM BID PRN PRN Reason: psychosis/acute agitation Stop: 06/22/18 15:06 Hydroxyzine HCl (Vistaril) 25 mg PO Q4H PRN PRN Reason: Anxiety Stop: 06/22/18 12:13 Hydroxyzine HCl (Vistaril) 50 mg PO HSZ PRN PRN Reason: Insomnia Stop: 06/22/18 12:13 Last Admin: 05/25/18 01:39 Dose: 50 mg Documented by: Lorazepam (Ativan) 1 mg PO BID PRN PRN Reason: psychosis/agitation Stop: 06/22/18 15:01 Lorazepam (Ativan) 2 mg IM BID PRN PRN Reason: psychosis/acute agitation Stop: 06/22/18 15:06 Magnesium Hydroxide (Milk Of Magnesia) 30 ml PO DAILY PRN PRN Reason: Heartburn Stop: 06/22/18 12:13 Risperidone (Risperdal) 0.5 mg PO Q4H PRN PRN Reason: psychosis Stop: 06/23/18 13:21 Sodium Chloride ([place] Nasal) 1 - 2 sprays NA PRN PRN PRN Reason: Nasal Dryness/Congestion Stop: 06/22/18 12:13 Post Discharge Appointments Primary Care Physician Name Of Family Doctor: Dr. Vincent ([facility]) Therapist Name of Therapist: Mian Guevara MA [employer]tender Name of Firer Watertender: none CPT Code CPT Code 87968
[2018-05-25] MEDS ORDERED: predniSONE 20 MG TAB PO SCH (11:00)
--- NOTE | 2018-05-26 09:49 | Psychiatric Progress Note ---
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 He became agitated twice while in the emergency department requiring restraints and IM medications, but has been cooperative since admission. He had a dystonic reaction and received Cogentin with good effect. Psychosis clearing and he reports better ability to reality test previous delusional beliefs. Better able to comprehend the effect substance abuse has had on his academics and overall functioning. Encouraged him to develop a clear plan for how he plans to abstain, reaching to outpatient supports for assistance as well. Pt has a family meeting with his parents this morning to discuss aftercare and safety planning. He requires inpatient mental health treatment due to the severity of his condition and resistance to coordination of care with any outpatient supports prior to today. Pt is at risk of harm to self and others based on severity of condition at admission and need to ensure stability of improvement to prevent decompensation at discharge. (1) Unspecified psychosis: 05/24 - Differential includes drug induced psychosis, primary thought disorder, psychotic mood disorder, or organic cause. Head CT in the ER negative, UDS positive for THC, UA abnormal but appears to be a contaminated sample, and only mild abnormalities in CMP (elevated total and direct bilirubin). TSH and CBC were normal. 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 Patient educated extensively about this diagnosis and the link between cannabis use and psychotic symptoms. - Continue haloperidol and lorazepam as needed for psychosis, and hydroxyzine as needed for sleep or anxiety. - Reviewed recommendation for a family meeting with parents with the patient, and he remains uncertain whether he will agree to this, although he states it could be helpful. It is unclear why he is resistant to this, but he alludes to some disagreements with parents about his substance use in the recent past. - Social work to clarify criminal charges with police, coordinate with the [place] office of student care and advocacy, and refer for outpatient treatment. 05/26 - Psychotic and delusional thinking greatly reduced today; continue prns if needed - Family meeting today at 10:30 with parents (2) Cannabis abuse: 05/24 - Recommend abstaining from cannabis and all other abusable substances. Synthetic stimulants and cannabinoids added on to initial ER labs, results pending. 05/25 - Psychoeducation provided re: risks of hallucinogen/cannabis/other substance use, including psychosis, anxiety, negative impact to mood, legal difficulties as a result of erratic behavior, safety concerns. Again reviewed recommendations for abstinence, and outpatient substance abuse/psychiatric treatment/follow up. - Patient initially reported drinking alcohol and snorting Adderall in the ER, but UDS negative for those substances, and now denies it. He does report using cocaine once in the past (~2 yrs ago), Adderall (about 8 months ago), and alcohol every 1-2 weeks, up to 5 drinks, as well as regular and sometimes heavy cannabis use. 05/26 - Pt reports desire for abstinence from all substances, as better able to see the effect it has had on his ability to function - Discussed plans to maintain sobriety - encouraged him to request support from family and friends and develop a clear plan as to how he plans to avoid in the future (3) Acute dehydration: 05/24 - Monitor PO intake as patient with 3+ ketones in urine. Repeat UA ordered (as also had 2+ blood with 10-30 red blood cells and mucus on initial UA 05/22/2018), and showed trace ketones and leukocyte esterase, but otherwise normal. 05/25 - Patient denies urinary symptoms, and p.o. intake is good. 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 He was admitted involuntarily on a 302 commitment on 05/23/18. Chief Complaint "Thing have been going great. I think I got past most of the paranoia." Review of Systems Notes Constitutional: reports improvement in sleep Cardiovascular: denied Respiratory: denied Gastrointestinal: denied Neurological: denied Psychiatric: denies symptoms other than stated above Total of at least 10 systems reviewed, pertinent positives as above and in HPI. Sleep Information Total Hours of Sleep: 7.75 Sleep Comments: pt on q-15 minute checks Meal Information Percent Meal Consumed - Breakfast: 85 Percent Meal Consumed - Lunch: 100 Percent Meal Consumed - Dinner: 75 Nutrition Comment: pt was asleep Subjective Subjective Patient was seen & assessed and interval progress reviewed with Nursing. Staff reports the patient has been doing well and is appearing more organized on the unit. He was willing for a family meeting with his parents which has been scheduled for this morning at 1030. Patient is open today about discussing likely factors leading to his paranoia and delusions. Patient states, "I think it was a combination of the pot versus lack of sleep." The patient admits that his substance abuse and sleep inconsistencies likely allowed him to get carried away with Internet searches. He states "I was looking at sites where people can just post their opinions, and I started believing it." The patient states that he feels he is in a place where he is "better able to discern for myself" reality. He is in the beginning stages of planning for sobriety, but reports a desire to abstain from marijuana and alcohol use in the future. Patient admits he and his parents discussed this during visiting hours last evening, and they are supportive. The patient is open about discussing plans to "stay away from kids they got me into the state." We discussed more concrete ways the patient can avoid peer pressure and resorting again to substance use. Patient denies any concerns today and feels that the sleep he has been getting while on the unit has been very helpful for his mental state. Physical Exam Psychiatric Orientation: alert, oriented x 3 and cooperative Apperance: appropriately dressed, appropriately groomed and appeared stated age Eye Contact: good eye contact Motor Behavior: steady gait and station and no abnormal motor movements Speech: normal rate/rhythm/volume of speech (clear speech, flowing appropriately ) Affect: + blunted affect (mildly); no depressed affect and no anxious affect "I've feeling a lot better, the sleep has really helped" and "pretty good" Thought Process: goal directed thought process and clear/coherent thought process Thought Content: reality based without delusions (But with delusions in the emergency department that the world was coming to an end) Suicidal Thoughts: denies suicidal thoughts Homicidal Thoughts: denies homicidal thoughts Hallucinations: no auditory hallucinations and no visual hallucinations Cognition: language grossly intact; + recent memory not intact, + remote memory not intact and + attention not intact Estimated Intelligence: consistent with education level Insight: + fair insight Judgement: + fair judgement Vital Signs (Past 24 Hours) Last Vital Signs Temp 36.5 C 05/26/18 06:47 Pulse 76 05/26/18 06:47 Resp 16 05/26/18 06:47 BP 113/70 05/26/18 06:47 Pulse Ox 95 05/22/18 23:20 Results & Data Laboratory Results Laboratory Results - last 24 hr 05/22/18 12:30 U Marijuana THC Carboxy 541 A Current Inpatient Medications Current Inpatient Medications: Current Inpatient Medications Acetaminophen (Tylenol) 650 mg PO Q4H PRN PRN Reason: Headache or Minor Fever Stop: 06/22/18 12:13 Al Hydrox/Mg Hydrox/Simethicone (Maalox) 30 ml PO Q4H PRN PRN Reason: GI Upset Stop: 06/22/18 12:13 Benztropine Mesylate (Cogentin) 2 mg IM BID PRN PRN Reason: dystonia Stop: 06/23/18 09:26 Last Admin: 05/24/18 10:01 Dose: 2 mg Documented by: Bismuth Subsalicylate (Kaopectate) 15 ml PO PRN PRN PRN Reason: Loose Stool Stop: 06/22/18 12:13 Haloperidol Lactate (Haldol) 10 mg IM BID PRN PRN Reason: psychosis/acute agitation Stop: 06/22/18 15:06 Hydroxyzine HCl (Vistaril) 25 mg PO Q4H PRN PRN Reason: Anxiety Stop: 06/22/18 12:13 Hydroxyzine HCl (Vistaril) 50 mg PO HSZ PRN PRN Reason: Insomnia Stop: 06/22/18 12:13 Last Admin: 05/25/18 21:01 Dose: 50 mg Documented by: Lorazepam (Ativan) 1 mg PO BID PRN PRN Reason: psychosis/agitation Stop: 06/22/18 15:01 Lorazepam (Ativan) 2 mg IM BID PRN PRN Reason: psychosis/acute agitation Stop: 06/22/18 15:06 Magnesium Hydroxide (Milk Of Magnesia) 30 ml PO DAILY PRN PRN Reason: Heartburn Stop: 06/22/18 12:13 Risperidone (Risperdal) 0.5 mg PO Q4H PRN PRN Reason: psychosis Stop: 06/23/18 13:21 Sodium Chloride ([place] Nasal) 1 - 2 sprays NA PRN PRN PRN Reason: Nasal Dryness/Congestion Stop: 06/22/18 12:13 Post Discharge Appointments Primary Care Physician Name Of Family Doctor: [facility]. Vincent ([facility]) Therapist Name of Therapist: Mian Guevara MA [employer]ert Name of Cook Frozen Dessert: none CPT Code CPT Code 62753
--- NOTE | 2018-05-27 09:32 | Discharge Summary ---
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 He is a very difficult historian with distracted thoughts, possible blocking, making it difficult to get good information. He indicates that he is smoking a lot of marijuana that includes possibly some synthetic marijuana and has also been spending too much time on his phone. On the Internet, he had apparently read something about the world coming to and and and became convinced that this was real. He then went to [facility] and while there stole a BB gun and a knife and was caught, charges are pending. He was then brought to our emergency department by the police because he was behaving oddly. While in the emergency department he became agitated requiring restraints once and an IM of Haldol and Ativan. He slept for a while, calm down and was behaviorally appropriate until he was approached to sign involuntarily for mental health treatment at which point he became overtly psychotic and agitated again. He received Haldol 5 mg and Ativan 2 mg and was then admitted to our unit on a 302 involuntary commitment. I meet with the patient as well as Dr. Nickerson. He is alert and cooperative however has trouble expressing his thoughts, frequently getting lost. He indicates that he believes that the marijuana has "suppressed my ability to be creative", "brainwashed me". He is unable to be any more specific about what he means. He denies that he is having any further thoughts about the world coming to an end and has been behaving appropriately. He describes that his mood in recent weeks has been "pretty good". He endorses sleep of about 8 hours per night. He denies anxiety. He denies hallucinations or paranoia today. He denies self-injurious behaviors, eating disorder behaviors, or problems with anger. He responds that his thoughts are moving "fast" but denies elevated energy or increase in goal-directed behaviors that would be congruent with bipolar disorder. He denies ever having had a similar episode initially but at the end of the interview says that he tried to wean off of marijuana last summer and had a similar episode but could not give any specifics or examples. He says that he has been smoking marijuana since he was 18. Physical Exam Psychiatric Orientation: oriented x 3 Apperance: appropriately groomed Eye Contact: + fair eye contact Motor Behavior: steady gait and station and no abnormal motor movements Speech: normal rate/rhythm/volume of speech Affect: euthymic affect "Kind of upset about what happened, but my mood is pretty good." Thought Process: goal directed thought process, linear/logical thought process and clear/coherent thought process Thought Content: reality based without delusions Suicidal Thoughts: denies suicidal thoughts Homicidal Thoughts: denies homicidal thoughts Hallucinations: no auditory hallucinations and no visual hallucinations Cognition: recent memory grossly intact, remote memory grossly intact, attention grossly intact and language grossly intact Estimated Intelligence: + above average estimated intelligence Insight: + fair insight Judgement: good judgement Vital Signs (Past 24 Hours) Last Vital Signs Temp 36.5 C 05/27/18 06:48 Pulse 77 05/27/18 06:49 Resp 16 05/27/18 06:48 BP 112/77 05/27/18 06:49 Pulse Ox 95 05/22/18 23:20 Principal Diagnosis Substance-Induced Psychosis Psychiatric Data During the course of hospitalization the patient was offered various modalities of psychiatric treatment and education. Following a period of stabilization, the patient became an active participant in both individual and group therapies. His initial presentation in the emergency department included agitation and gross confusion, and he required restraints and emergency medications (haloperidol and lorazepam). However, he cleared fairly rapidly following admission. His behaviors became cooperative and polite. There was a question concerning the etiology of the psychosis and it was determined that it was in the patient's best interest to be under observation for several days in order to assure that there was no underlying thought disorder, independent of substance use. The patient remained free of psychotic symptoms, and was able to talk about the experiences that led to the psychiatric hospitalization. He told us that in the fall he was smoking "1/8" of an ounce of marijuana daily, and "sometimes more." He notes that he "cut back" during the spring. He notes that he had recently bought marijuana "downtown" from 1 of his usual suppliers, but the marijuana did not seem particularly potent, so he sought a different supplier and bought a new supply of marijuana which he found to be extremely potent. In the days that led up to the events that precipitated the current psychiatric admission he had been smoking "nonstop," and, at the same time, was staying up, not sleeping much, and "surfing" to the Internet. Without going into details, he said that he encountered a number of strange stories and was aware that he began to believe that the world was going to be coming to an end and that Armageddon was at hand. The patient told us that he remembers going to [place], fully convinced that the world was coming to an end and that he would need to defend himself within the context of anticipated ensuing chaos. The patient also was clear on the point that he had never had anything similar to this happened in the past. Symptoms of caitlin and hypomania were reviewed with the patient and he did not endorse any of the symptoms. He indicates that he had seen a therapist previously in [place] for "some personal issues." The patient was placed on no psychiatric medications, and arrangements were made for the patient's father to come from [place] to assist the patient in preparing to finish the current semester at [employer]. The patient was able to demonstrate that he has been doing well in his classes at [employer] (reportedly, the patient's parents had suspected that he was not telling the truth when he asserted that he was doing well academically). 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 He describes his parents as being "determined" and notes that his father is suggesting that he participated in a "[employer]" program in [place]. The patient also says that he does not believe that he will return to [employer] in the fall because he would like to be either in a warm climate (where he can golf more regularly during the academic year) or, preferably, closer to home. Day of Discharge Assessment The patient was pleasant, cooperative, and appropriately groomed and dressed. He notes that he is still somewhat anxious and upset about the circumstances that led to his admission, and among his concerns is a question as to whether Aurelia pressed legal charges because of his behaviors, which reportedly included attempting to steal items from the store, within the context of his delusional believes, immediately prior to the admission. He describes his mood as "normal." He denies feeling depressed, but does acknowledge still feeling somewhat anxious about his circumstances. The patient's affect is generally euthymic, but he does become anxious when discussing the events that precipitated the admission. The patient's thought processes are tight. There is no evidence of any delusional material and the patient's thought content. He acknowledges that, during the period of time that immediately proceeded the admission, he had been both hearing and seeing things that other people could not hear or see. He notes that he had never had a similar experience in the past, and his perceptual disturbances resolved shortly after his admission to the behavioral health unit. The patient's insight is at least fair. He is able to recall his delusional believes, and clearly recognizes that they were, in fact, not based in reality. There have been no further perceptual disturbances. He reports that he has no thoughts of suicide or other forms of intentional self-injurious behaviors. He also reports that he has no thoughts of causing physical harm to the person or property of others. The patient's judgment at this point is assessed as being good. He understands that he will need to abstain from marijuana and other drugs, given the finding that this admission is most likely directly attributable to his use of cannabis. The patient's strengths include intelligence and a supportive family. Transition of Care Transition Of Care Record: was reviewed with the patient Advance Directives Advance Directives Information Provided: Yes Advance Directives: No Mental Health Advance Directive: No Advance Directives on File: No Living Will: No Power of Sewer Bricklayer: No Advance Directives Reason:: Declines as Mental Health Visit. Risk Factors Assessment Male: Yes : Yes Do You Have Access To A Gun?: No Health Problems: No Mental Health Diagnoses: No Substance Use Disorders: Yes Previous Attempt: No Previous Psychiatric Hospitalization: No Hopelessness: No Smoker: Yes Protective Factors Assessment : No Responsible for Young Children: No Employed: No Supportive Family: Yes Good Rapport with Provider: Yes Absence of Any Risk Factors Above: No Tobacco Cessation at Discharge Tobacco Cessation Medication Prescribed at Discharge: Not Applicable/Non-Smoker Total Time Total Time Spent: Greater Than 30 Minutes Total Time Includes: Examination of the patient, Discharge Planning and Communication with other providers Discharge Data Lab Results 05/22/18 05/22/18 05/22/18 10:06 10:12 10:12 WBC 9.86 RBC 5.24 Hgb 15.5 Hct 45.6 MCV 87.0 MCH 29.6 MCHC 34.0 RDW Std Deviation 43.4 RDW Coeff of Casey 13.5 Plt Count 193 MPV 11.8 H Immature Gran % (Auto) 0.1 Neut % (Auto) 74.9 Lymph % (Auto) 17.0 Adams % (Auto) 7.5 Eos % (Auto) 0.3 Baso % (Auto) 0.2 Immature Gran # (Auto) 0.01 Neut # (Auto) 7.38 H Lymph # (Auto) 1.68 Adams # (Auto) 0.74 H Eos # (Auto) 0.03 Baso # (Auto) 0.02 Sodium 139 Potassium 3.6 Chloride 104 Carbon Dioxide 24 Anion Gap 11.0 BUN 16 Creatinine 1.02 Est Cr Clr Drug Dosing 101.0 Est GFR ( Amer) 122.1 Est GFR (Non-Af Amer) 105.3 BUN/Creatinine Ratio 15.8 Glucose 130 H Calcium 9.9 Total Bilirubin 2.1 H Direct Bilirubin 0.4 H AST 17 ALT 21 Alkaline Phosphatase 77 Total Creatine Kinase 243 Total Protein 8.2 Albumin 4.8 Globulin Albumin/Globulin Ratio TSH Urine Color Urine Appearance Urine pH Ur Specific Decatur Urine Protein Urine Glucose (UA) Urine Ketones Urine Blood Urine Nitrite Urine Bilirubin Urine Urobilinogen Ur Leukocyte Esterase Urine WBC (Auto) Urine RBC (Auto) U Hyaline Cast (Auto) U Epithel Cells (Auto) Urine Bacteria (Auto) Urine RBC Urine WBC Ur Epithelial Cells Ur Renal Epithelial Cell Urine Bacteria Urine Mucus Salicylates Urine Opiates Screen Ur Methadone, Qual Acetaminophen Urine Barbiturates Ur Phencyclidine (PCP) U Amphetamin/Meth Scrn MDMA (Ecstasy) Screen U Benzodiazepines Scrn Ur Cocaine Metabolite U Marijuana (THC) Screen U Marijuana THC Carboxy Ethyl Alcohol mg/dL < 3.0 Miscellaneous Test Miscellaneous Test 2 05/22/18 05/22/18 05/22/18 10:13 10:41 12:30 WBC RBC Hgb Hct MCV MCH MCHC RDW Std Deviation RDW Coeff of Casey Plt Count MPV Immature Gran % (Auto) Neut % (Auto) Lymph % (Auto) Adams % (Auto) Eos % (Auto) Baso % (Auto) Immature Gran # (Auto) Neut # (Auto) Lymph # (Auto) Adams # (Auto) Eos # (Auto) Baso # (Auto) Sodium Potassium Chloride Carbon Dioxide Anion Gap BUN Creatinine Est Cr Clr Drug Dosing Est GFR ( Amer) Est GFR (Non-Af Amer) BUN/Creatinine Ratio Glucose Calcium Total Bilirubin Direct Bilirubin AST ALT Alkaline Phosphatase Total Creatine Kinase Total Protein Albumin Globulin Albumin/Globulin Ratio TSH Urine Color Dark Yellow Urine Appearance Cloudy H Urine pH 5.5 Ur Specific [place] 1.039 H Urine Protein 1+ H Urine Glucose (UA) Negative Urine Ketones 3+ H Urine Blood 2+ H Urine Nitrite Negative Urine Bilirubin Negative Urine Urobilinogen Negative Ur Leukocyte Esterase Negative Urine WBC (Auto) 5-10 H Urine RBC (Auto) 10-30 H U Hyaline Cast (Auto) Not Reportable U Epithel Cells (Auto) >30 H Urine Bacteria (Auto) Negative Urine RBC Urine WBC Ur Epithelial Cells Ur Renal Epithelial Cell Not Reportable Urine Bacteria Urine Mucus Present H Salicylates Urine Opiates Screen Ur Methadone, Qual Acetaminophen Urine Barbiturates Ur Phencyclidine (PCP) U Amphetamin/Meth Scrn MDMA (Ecstasy) Screen U Benzodiazepines Scrn Ur Cocaine Metabolite U Marijuana (THC) Screen U Marijuana THC Carboxy Ethyl Alcohol mg/dL Miscellaneous Test REPORT Miscellaneous Test 2 REPORT 05/22/18 05/22/18 05/22/18 12:30 12:30 16:53 WBC RBC Hgb Hct MCV MCH MCHC RDW Std Deviation RDW Coeff of Casey Plt Count MPV Immature Gran % (Auto) Neut % (Auto) Lymph % (Auto) Adams % (Auto) Eos % (Auto) Baso % (Auto) Immature Gran # (Auto) Neut # (Auto) Lymph # (Auto) Adams # (Auto) Eos # (Auto) Baso # (Auto) Sodium 140 Potassium 4.1 Chloride 110 H Carbon Dioxide 26 Anion Gap 4.0 BUN 14 Creatinine 0.82 Est Cr Clr Drug Dosing 125.6 Est GFR ( Amer) 147.5 Est GFR (Non-Af Amer) 127.3 BUN/Creatinine Ratio 17.8 Glucose 92 Calcium 8.4 L D Total Bilirubin 2.0 H Direct Bilirubin AST 35 ALT 18 Alkaline Phosphatase 60 Total Creatine Kinase Total Protein 6.5 D Albumin 3.7 Globulin 2.8 Albumin/Globulin Ratio 1.3 TSH 1.490 Urine Color Urine Appearance Urine pH Ur Specific [place] Urine Protein Urine Glucose (UA) Urine Ketones Urine Blood Urine Nitrite Urine Bilirubin Urine Urobilinogen Ur Leukocyte Esterase Urine WBC (Auto) Urine RBC (Auto) U Hyaline Cast (Auto) U Epithel Cells (Auto) Urine Bacteria (Auto) Urine RBC Urine WBC Ur Epithelial Cells Ur Renal Epithelial Cell Urine Bacteria Urine Mucus Salicylates Urine Opiates Screen Neg Ur Methadone, Qual Neg Acetaminophen Urine Barbiturates Neg Ur Phencyclidine (PCP) Neg U Amphetamin/Meth Scrn Neg MDMA (Ecstasy) Screen Neg U Benzodiazepines Scrn Neg Ur Cocaine Metabolite Neg U Marijuana (THC) Screen Pos H U Marijuana THC Carboxy 541 A Ethyl Alcohol mg/dL Miscellaneous Test Miscellaneous Test 2 05/22/18 05/24/18 16:53 11:35 WBC RBC Hgb Hct MCV MCH MCHC RDW Std Deviation RDW Coeff of Casey Plt Count MPV Immature Gran % (Auto) Neut % (Auto) Lymph % (Auto) Adams % (Auto) Eos % (Auto) Baso % (Auto) Immature Gran # (Auto) Neut # (Auto) Lymph # (Auto) Adams # (Auto) Eos # (Auto) Baso # (Auto) Sodium Potassium Chloride Carbon Dioxide Anion Gap BUN Creatinine Est Cr Clr Drug Dosing Est GFR ( Amer) Est GFR (Non-Af Amer) BUN/Creatinine Ratio Glucose Calcium Total Bilirubin Direct Bilirubin AST ALT Alkaline Phosphatase Total Creatine Kinase Total Protein Albumin Globulin Albumin/Globulin Ratio TSH Urine Color Yellow Urine Appearance Clear Urine pH 7.0 Ur Specific [place] 1.010 Urine Protein Negative Urine Glucose (UA) Negative Urine Ketones Trace H Urine Blood Negative Urine Nitrite Negative Urine Bilirubin Negative Urine Urobilinogen Negative Ur Leukocyte Esterase Trace H Urine WBC (Auto) Urine RBC (Auto) U Hyaline Cast (Auto) U Epithel Cells (Auto) Urine Bacteria (Auto) Urine RBC 0-4 Urine WBC 0-5 Ur Epithelial Cells 0-5 Ur Renal Epithelial Cell Urine Bacteria Negative Urine Mucus Salicylates Urine Opiates Screen Ur Methadone, Qual Acetaminophen < 2 L Urine Barbiturates Ur Phencyclidine (PCP) U Amphetamin/Meth Scrn MDMA (Ecstasy) Screen U Benzodiazepines Scrn Ur Cocaine Metabolite U Marijuana (THC) Screen U Marijuana THC Carboxy Ethyl Alcohol mg/dL Miscellaneous Test Miscellaneous Test 2 Hospital Course (1) Unspecified psychosis: 05/24 - Differential includes drug induced psychosis, primary thought disorder, psychotic mood disorder, or organic cause. Head CT in the ER negative, UDS positive for THC, UA abnormal but appears to be a contaminated sample, and only mild abnormalities in CMP (elevated total and direct bilirubin). TSH and CBC were normal. 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 Patient educated extensively about this diagnosis and the link between cannabis use and psychotic symptoms. - Continue haloperidol and lorazepam as needed for psychosis, and hydroxyzine as needed for sleep or anxiety. - Reviewed recommendation for a family meeting with parents with the patient, and he remains uncertain whether he will agree to this, although he states it could be helpful. It is unclear why he is resistant to this, but he alludes to some disagreements with parents about his substance use in the recent past. - Social work to clarify criminal charges with police, coordinate with the [facility] office of student care and advocacy, and refer for outpatient treatment. 05/26 - Psychotic and delusional thinking greatly reduced today; continue prns if needed - Family meeting today at 10:30 with parents 05/27 -The patient remains free of all psychotic symptoms. There is no delusional material and the patient's thought content and there is no evidence that the patient continues to experience perceptual disturbances. -The patient's history is not consistent with the finding of a primary thought disorder and it is believed that the patient's presentation at admission was precipitated either by excessive use of marijuana, complicated by fatigue and possible dehydration, and, possibly, the use of marijuana that had been "laced" with another substance. The patient reports that he was not using any other chemical substance at the time, and denies anything other than "one time" experimental use of other chemical substances. He acknowledges occasional use of alcohol but notes that this is infrequent and limited. (2) Cannabis abuse: 05/24 - Recommend abstaining from cannabis and all other abusable substances. Synthetic stimulants and cannabinoids added on to initial ER labs, results pending. 05/25 - Psychoeducation provided re: risks of hallucinogen/cannabis/other substance use, including psychosis, anxiety, negative impact to mood, legal difficulties as a result of erratic behavior, safety concerns. Again reviewed recommendations for abstinence, and outpatient substance abuse/psychiatric treatment/follow up. - Patient initially reported drinking alcohol and snorting Adderall in the ER, but UDS negative for those substances, and now denies it. He does report using cocaine once in the past (~2 yrs ago), Adderall (about 8 months ago), and alcohol every 1-2 weeks, up to 5 drinks, as well as regular and sometimes heavy cannabis use. 05/26 - Pt reports desire for abstinence from all substances, as better able to see the effect it has had on his ability to function - Discussed plans to maintain sobriety - encouraged him to request support from family and friends and develop a clear plan as to how he plans to avoid in the future 05/27 -The patient continues to report a plan to remain abstinence from all drugs of abuse, and particularly marijuana. He does voice some ambivalence in this regard, and wonders if he were to acquire marijuana from a regulated source, and if he were careful not to use large quantities, if it might at some point in the future be acceptable. I advised him that given the uncertainty of what precipitated the problem that resulted in the admission, I would definitely recommend not taking a risk by doing anything other than maintaining full abstinence. (3) Acute dehydration: 05/24 - Monitor PO intake as patient with 3+ ketones in urine. Repeat UA ordered (as also had 2+ blood with 10-30 red blood cells and mucus on initial UA 05/22/2018), and showed trace ketones and leukocyte esterase, but otherwise normal. 05/25 - Patient denies urinary symptoms, and p.o. intake is good. 05/27 -The patient has been able to maintain good oral intake and there is no further evidence of dehydration. Post Discharge Appointments Primary Care Physician Name Of Family Doctor: Dr. Vincent ([facility]) Primary Care Provider Appointment Comment: [address] [facility], [address], [place] [address] Therapist Name of Therapist: Tobias Marley [facility] Therapist's Date of Therapist Appointment: 05/30/18 Time of Therapist Appointment: 2:40pm Therapy Appointment Comment: [address] [id number], [place] [address] Fruit Or Nut Farmworker Name of Fruit Or Nut Farmworker: Jhon sarmiento [facility] Phone Number for Fruit Or Nut Farmworker: [phone] Date of Appointment with Fruit Or Nut Farmworker: 05/27/18 Time of Appointment with Fruit Or Nut Farmworker: 2:30 Case Management Appointment Comment: [address] [place] [id number] Smoking Cessation Counseling Tobacco Cessation Medication Prescribed at Discharge: Not Applicable/Non-Smoker Contact Information Discharge Discharge Address: School: [address] [place] [id number] Contact Information Comment: Home: [address] [place] [id number] Discharge Plan Discharge Items Patient Disposition: Home - Self-Care Reason For Visit: PSYCHOSIS NOS Discharge Diagnosis: Substance Induced Psychosis (Complicated by dehydration) Discharge Goals: Improve function, Increase independence, Learn about illness and Specific goals Specific Goals: Abstinence from alcohol and other drugs Activity: Resume your previous activity Non-emergency contact: Primary Care Provider and Therapist Call non-emergency contact if: you have any medication questions and your symptoms worsen Follow-up/Referrals: PCP,NO [Primary Care Provider] - Diet: Regular Addtl Provider Instructions: Regular exercise. Prescriptions: No Action No Known Home Medications RF: 0 Stand-Alone Forms: [facility] Discharge Orders: Discharge Order (Routine); Ordered 05/27/18 Ordered By: Compa Pendleton Admission Data Admit Date/Time: 05/23/18 12:15 Attending Provider: Lima Marti Admit Provider: Lima Marti Primary Care Provider: PCP,NO Service: Psychiatry Other Interventions: PSY Interdisciplinary Discharge Planning Last Done: 05/27/18 10:10 Pending Studies at Discharge: No
--- NOTE | 2018-05-27 10:08 | Discharge Summary ---
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 He is a very difficult historian with distracted thoughts, possible blocking, making it difficult to get good information. He indicates that he is smoking a lot of marijuana that includes possibly some synthetic marijuana and has also been spending too much time on his phone. On the Internet, he had apparently read something about the world coming to and and and became convinced that this was real. He then went to [facility] and while there stole a BB gun and a knife and was caught, charges are pending. He was then brought to our emergency department by the police because he was behaving oddly. While in the emergency department he became agitated requiring restraints once and an IM of Haldol and Ativan. He slept for a while, calm down and was behaviorally appropriate until he was approached to sign involuntarily for mental health treatment at which point he became overtly psychotic and agitated again. He received Haldol 5 mg and Ativan 2 mg and was then admitted to our unit on a 302 involuntary commitment. I meet with the patient as well as Dr. Nickerson. He is alert and cooperative however has trouble expressing his thoughts, frequently getting lost. He indicates that he believes that the marijuana has "suppressed my ability to be creative", "brainwashed me". He is unable to be any more specific about what he means. He denies that he is having any further thoughts about the world coming to an end and has been behaving appropriately. He describes that his mood in recent weeks has been "pretty good". He endorses sleep of about 8 hours per night. He denies anxiety. He denies hallucinations or paranoia today. He denies self-injurious behaviors, eating disorder behaviors, or problems with anger. He responds that his thoughts are moving "fast" but denies elevated energy or increase in goal-directed behaviors that would be congruent with bipolar disorder. He denies ever having had a similar episode initially but at the end of the interview says that he tried to wean off of marijuana last summer and had a similar episode but could not give any specifics or examples. He says that he has been smoking marijuana since he was 18. Physical Exam Vital Signs (Past 24 Hours) Last Vital Signs Temp 36.5 C 05/27/18 06:48 Pulse 77 05/27/18 06:49 Resp 16 05/27/18 06:48 BP 112/77 05/27/18 06:49 Pulse Ox 95 05/22/18 23:20 Psychiatric Data Advance Directives Advance Directives Information Provided: Yes Advance Directives: No Mental Health Advance Directive: No Advance Directives on File: No Living Will: No Power of Power Switchboard Operator: No Advance Directives Reason:: Declines as Mental Health Visit. Risk Factors Assessment Male: Yes : Yes Do You Have Access To A Gun?: No Health Problems: No Mental Health Diagnoses: No Substance Use Disorders: Yes Previous Attempt: No Previous Psychiatric Hospitalization: No Hopelessness: No Smoker: Yes Protective Factors Assessment : No Responsible for Young Children: No Employed: No Supportive Family: Yes Good Rapport with Provider: Yes Absence of Any Risk Factors Above: No Tobacco Cessation at Discharge Tobacco Cessation Medication Prescribed at Discharge: Not Applicable/Non-Smoker Discharge Data Lab Results 05/22/18 05/22/18 05/22/18 10:06 10:12 10:12 WBC 9.86 RBC 5.24 Hgb 15.5 Hct 45.6 MCV 87.0 MCH 29.6 MCHC 34.0 RDW Std Deviation 43.4 RDW Coeff of Casey 13.5 Plt Count 193 MPV 11.8 H Immature Gran % (Auto) 0.1 Neut % (Auto) 74.9 Lymph % (Auto) 17.0 [place] % (Auto) 7.5 Eos % (Auto) 0.3 Baso % (Auto) 0.2 Immature Gran # (Auto) 0.01 Neut # (Auto) 7.38 H Lymph # (Auto) 1.68 [place] # (Auto) 0.74 H Eos # (Auto) 0.03 Baso # (Auto) 0.02 Sodium 139 Potassium 3.6 Chloride 104 Carbon Dioxide 24 Anion Gap 11.0 BUN 16 Creatinine 1.02 Est Cr Clr Drug Dosing 101.0 Est GFR ( Amer) 122.1 Est GFR (Non-Af Amer) 105.3 BUN/Creatinine Ratio 15.8 Glucose 130 H Calcium 9.9 Total Bilirubin 2.1 H Direct Bilirubin 0.4 H AST 17 ALT 21 Alkaline Phosphatase 77 Total Creatine Kinase 243 Total Protein 8.2 Albumin 4.8 Globulin Albumin/Globulin Ratio TSH Urine Color Urine Appearance Urine pH Ur Specific [place] Urine Protein Urine Glucose (UA) Urine Ketones Urine Blood Urine Nitrite Urine Bilirubin Urine Urobilinogen Ur Leukocyte Esterase Urine WBC (Auto) Urine RBC (Auto) U Hyaline Cast (Auto) U Epithel Cells (Auto) Urine Bacteria (Auto) Urine RBC Urine WBC Ur Epithelial Cells Ur Renal Epithelial Cell Urine Bacteria Urine Mucus Salicylates Urine Opiates Screen Ur Methadone, Qual Acetaminophen Urine Barbiturates Ur Phencyclidine (PCP) U Amphetamin/Meth Scrn MDMA (Ecstasy) Screen U Benzodiazepines Scrn Ur Cocaine Metabolite U Marijuana (THC) Screen U Marijuana THC Carboxy Ethyl Alcohol mg/dL < 3.0 Miscellaneous Test Miscellaneous Test 2 05/22/18 05/22/18 05/22/18 10:13 10:41 12:30 WBC RBC Hgb Hct MCV MCH MCHC RDW Std Deviation RDW Coeff of Casey Plt Count MPV Immature Gran % (Auto) Neut % (Auto) Lymph % (Auto) [place] % (Auto) Eos % (Auto) Baso % (Auto) Immature Gran # (Auto) Neut # (Auto) Lymph # (Auto) [place] # (Auto) Eos # (Auto) Baso # (Auto) Sodium Potassium Chloride Carbon Dioxide Anion Gap BUN Creatinine Est Cr Clr Drug Dosing Est GFR ( Amer) Est GFR (Non-Af Amer) BUN/Creatinine Ratio Glucose Calcium Total Bilirubin Direct Bilirubin AST ALT Alkaline Phosphatase Total Creatine Kinase Total Protein Albumin Globulin Albumin/Globulin Ratio TSH Urine Color Dark Yellow Urine Appearance Cloudy H Urine pH 5.5 Ur Specific [place] 1.039 H Urine Protein 1+ H Urine Glucose (UA) Negative Urine Ketones 3+ H Urine Blood 2+ H Urine Nitrite Negative Urine Bilirubin Negative Urine Urobilinogen Negative Ur Leukocyte Esterase Negative Urine WBC (Auto) 5-10 H Urine RBC (Auto) 10-30 H U Hyaline Cast (Auto) Not Reportable U Epithel Cells (Auto) >30 H Urine Bacteria (Auto) Negative Urine RBC Urine WBC Ur Epithelial Cells Ur Renal Epithelial Cell Not Reportable Urine Bacteria Urine Mucus Present H Salicylates Urine Opiates Screen Ur Methadone, Qual Acetaminophen Urine Barbiturates Ur Phencyclidine (PCP) U Amphetamin/Meth Scrn MDMA (Ecstasy) Screen U Benzodiazepines Scrn Ur Cocaine Metabolite U Marijuana (THC) Screen U Marijuana THC Carboxy Ethyl Alcohol mg/dL Miscellaneous Test REPORT Miscellaneous Test 2 REPORT 05/22/18 05/22/18 05/22/18 12:30 12:30 16:53 WBC RBC Hgb Hct MCV MCH MCHC RDW Std Deviation RDW Coeff of Casey Plt Count MPV Immature Gran % (Auto) Neut % (Auto) Lymph % (Auto) [place] % (Auto) Eos % (Auto) Baso % (Auto) Immature Gran # (Auto) Neut # (Auto) Lymph # (Auto) [place] # (Auto) Eos # (Auto) Baso # (Auto) Sodium 140 Potassium 4.1 Chloride 110 H Carbon Dioxide 26 Anion Gap 4.0 BUN 14 Creatinine 0.82 Est Cr Clr Drug Dosing 125.6 Est GFR ( Amer) 147.5 Est GFR (Non-Af Amer) 127.3 BUN/Creatinine Ratio 17.8 Glucose 92 Calcium 8.4 L D Total Bilirubin 2.0 H Direct Bilirubin AST 35 ALT 18 Alkaline Phosphatase 60 Total Creatine Kinase Total Protein 6.5 D Albumin 3.7 Globulin 2.8 Albumin/Globulin Ratio 1.3 TSH 1.490 Urine Color Urine Appearance Urine pH Ur Specific [place] Urine Protein Urine Glucose (UA) Urine Ketones Urine Blood Urine Nitrite Urine Bilirubin Urine Urobilinogen Ur Leukocyte Esterase Urine WBC (Auto) Urine RBC (Auto) U Hyaline Cast (Auto) U Epithel Cells (Auto) Urine Bacteria (Auto) Urine RBC Urine WBC Ur Epithelial Cells Ur Renal Epithelial Cell Urine Bacteria Urine Mucus Salicylates Urine Opiates Screen Neg Ur Methadone, Qual Neg Acetaminophen Urine Barbiturates Neg Ur Phencyclidine (PCP) Neg U Amphetamin/Meth Scrn Neg MDMA (Ecstasy) Screen Neg U Benzodiazepines Scrn Neg Ur Cocaine Metabolite Neg U Marijuana (THC) Screen Pos H U Marijuana THC Carboxy 541 A Ethyl Alcohol mg/dL Miscellaneous Test Miscellaneous Test 2 05/22/18 05/24/18 16:53 11:35 WBC RBC Hgb Hct MCV MCH MCHC RDW Std Deviation RDW Coeff of Casey Plt Count MPV Immature Gran % (Auto) Neut % (Auto) Lymph % (Auto) [place] % (Auto) Eos % (Auto) Baso % (Auto) Immature Gran # (Auto) Neut # (Auto) Lymph # (Auto) [place] # (Auto) Eos # (Auto) Baso # (Auto) Sodium Potassium Chloride Carbon Dioxide Anion Gap BUN Creatinine Est Cr Clr Drug Dosing Est GFR ( Amer) Est GFR (Non-Af Amer) BUN/Creatinine Ratio Glucose Calcium Total Bilirubin Direct Bilirubin AST ALT Alkaline Phosphatase Total Creatine Kinase Total Protein Albumin Globulin Albumin/Globulin Ratio TSH Urine Color Yellow Urine Appearance Clear Urine pH 7.0 Ur Specific [place] 1.010 Urine Protein Negative Urine Glucose (UA) Negative Urine Ketones Trace H Urine Blood Negative Urine Nitrite Negative Urine Bilirubin Negative Urine Urobilinogen Negative Ur Leukocyte Esterase Trace H Urine WBC (Auto) Urine RBC (Auto) U Hyaline Cast (Auto) U Epithel Cells (Auto) Urine Bacteria (Auto) Urine RBC 0-4 Urine WBC 0-5 Ur Epithelial Cells 0-5 Ur Renal Epithelial Cell Urine Bacteria Negative Urine Mucus Salicylates Urine Opiates Screen Ur Methadone, Qual Acetaminophen < 2 L Urine Barbiturates Ur Phencyclidine (PCP) U Amphetamin/Meth Scrn MDMA (Ecstasy) Screen U Benzodiazepines Scrn Ur Cocaine Metabolite U Marijuana (THC) Screen U Marijuana THC Carboxy Ethyl Alcohol mg/dL Miscellaneous Test Miscellaneous Test 2 Post Discharge Appointments Primary Care Physician Name Of Family Doctor: Dr. Vincent ([facility]) Primary Care Provider Appointment Comment: [address] [facility], [address], [place] [address] Primary Care Release of Information: Obtained, Reviewed and Signed Therapist Name of Therapist: Tobias Marley [facility] Therapist's Date of Therapist Appointment: 05/30/18 Time of Therapist Appointment: 2:40pm Therapy Appointment Comment: [address] [id number], [place] [address] Therapist Release of Information: Obtained, Reviewed and Signed Fluid Dynamicist Name of Fluid Dynamicist: Jhon at [facility] Advocacy Phone Number for Fluid Dynamicist: [phone] Date of Appointment with Fluid Dynamicist: 05/27/18 Time of Appointment with Fluid Dynamicist: 2:30 Case Management Appointment Comment: [address] [place] [id number] Smoking Cessation Counseling Tobacco Cessation Medication Prescribed at Discharge: Not Applicable/Non-Smoker Contact Information Discharge Discharge Address: School: [address] [place] [address], [place] [address] Contact Information Comment: Home: [address] [place], [place] [address], [place] [address] Discharge Plan Discharge Items Patient Disposition: Home - Self-Care Reason For Visit: PSYCHOSIS NOS 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 Prescriptions: No Action No Known Home Medications RF: 0 Stand-Alone Forms: [facility] Admission Data Admit Date/Time: 05/23/18 12:15 Attending Provider: Lima Marti Admit Provider: Lima Marti Primary Care Provider: AGUSTÍN PARKER Service: Psychiatry Other Interventions: PSY Interdisciplinary Discharge Planning Last Done: 05/27/18 09:30
[2018-05-31 08:06] LABS: Synthetic Cannabinoid Qual Ur NEGATIVE (Negative)
== END 2018-05-27 11:14 | disposition home or self-care (01) | DRG 897 ==
LOC: ED 09:22 → 3S 05-23 12:15